=== PATIENT | female | born 1935 | race Caucasian/White ===

== ENCOUNTER → 2023-09-26 09:03 | Outpatient (REF) | payer OTHER, MEDICARE, SELFPAY ==
[2023-09-26 12:20] LABS: Urine Albumin Negative (Neg - Trace); Urine Bilirubin Negative (Negative); Urine Character Clear (Clear); Urine Color Yellow; Urine Glucose 3+ (Negative); Urine Ketone Negative (Negative); Urine Leukocyte Trace (Negative); Urine Nitrite Negative (Negative); Urine Occult Blood Negative (Negative); Urine Urobilinogen Negative (Neg - 1+)
[2023-09-26 12:22] LABS: % Basophils 0.7 % (0-2); % Eosinophils 2.2 % (0-6); % Immature Granulocytes 0.1 % (0-0.5); % Lymphocytes 20.2 % (20.5-51.1); % Monocytes 8.7 % (1.7-9.3); % Neutrophils 68.1 % (42.2-75.2); Absolute Basophils 0.1 10^3/uL (0-0.2); Absolute Eosinophils 0.2 10^3/uL (0-0.7); Absolute Lymphocytes 1.4 10^3/uL (1.2-3.4); Absolute Monocytes 0.6 10^3/uL (0.1-0.6); Absolute Neutrophils 4.6 10^3/uL (1.4-6.5); Hematocrit 45.1 % (37.0-47.0); Hemoglobin 14.8 g/dL (12.0-16.0); Mean Corp Hgb Conc. 32.8 g/dL (33.0-37.0); Mean Corpuscular Hgb 28.2 pg (27.0-31.0); Mean Corpuscular Volume 86.1 fL (81.0-99.0); Mean Platelet Volume 10.6 fL (7.4-10.4); Nucleated Red Blood Cells % 0 %; Platelet Count 256 10^3/uL (130-400); Red Blood Cell Count 5.24 10^6/uL (4.20-5.40); White Blood Cell Count 6.8 10^3/uL (4.8-10.8)
[2023-09-26 12:53] LABS: ALT (SGPT) 22 U/L (0-35); AST (SGOT) 22 U/L (14-36); Albumin 3.7 g/dl (3.5-5.0); Alkaline Phosphatase 68 U/L (38-126); Blood Urea Nitrogen 17 mg/dl (7-17); Calcium 9.1 mg/dl (8.4-10.2); Carbon Dioxide 31 mmol/L (22-30); Chloride 100 mmol/L (98-107); Glucose 135 mg/dl (70-99); Potassium 3.8 mmol/L (3.5-5.1); Total Bilirubin 1.7 mg/dl (0.2-1.3); Total Protein 6.6 g/dl (6.3-8.2); eGFR > 60.00
[2023-09-26 13:02] LABS: Sodium 138 mmol/L (135-145)
[2023-09-26 13:28] LABS: Urine Red Blood Cell 0-2 /HPF (0-2)
[2023-09-26 13:29] LABS: Urine Bacteria Few (Negative)
== END ==
LOC: HWLAB 09:03
PROVIDERS: ATTENDING PHYSICIAN Internal Medicine Rheumatology; FAMILY PHYSICIAN Family Medicine
DX: M35.00 Sjogren syndrome, unspecified (principal); E11.9 Type 2 diabetes mellitus without complications
CPT/HCPCS: 36415; 80053; 81003; 81015; 83036; 85025

== ENCOUNTER → 2024-01-09 07:00 | Outpatient (REF) | payer OTHER, SELFPAY ==
[2024-01-09 09:22] LABS: Glycohemoglobin (HgbA1c) 7.5 % (4.0-5.6)
[2024-01-09 09:23] LABS: ALT (SGPT) 19 U/L (0-35); AST (SGOT) 21 U/L (14-36); Albumin 4.1 g/dl (3.5-5.0); Alkaline Phosphatase 71 U/L (38-126); Blood Urea Nitrogen 18 mg/dl (7-17); Calcium 9.3 mg/dl (8.4-10.2); Carbon Dioxide 29 mmol/L (22-30); Chloride 105 mmol/L (98-107); Glucose 139 mg/dl (70-99); HDL Cholesterol 45 mg/dl; LDL Cholesterol, Calculated 61 mg/dl; Sodium 143 mmol/L (135-145); Total Bilirubin 1.4 mg/dl (0.2-1.3); Total Cholesterol 125 mg/dl (50-199); Triglyceride 97 mg/dl (10-149); Very Low Density Lipoprotein 19 mg/dl (0-30); eGFR > 60.00
== END ==
LOC: HWLAB 07:00
PROVIDERS: ATTENDING PHYSICIAN Family Medicine
DX: E11.9 Type 2 diabetes mellitus without complications (principal)
CPT/HCPCS: 36415; 80053; 80061; 83036

== ENCOUNTER 2024-02-13 13:32 | Inpatient (IN) | payer OTHER, SELFPAY ==
[2024-02-13] VITALS (12 sets, daily range): BP systolic 123–179; BP diastolic 57–95
--- NOTE | 2024-02-13 08:56 | ED.GENMED ---
History of Present Illness
General
Chief Complaint: Abdominal Symptoms
Source: patient, spouse and family
Exam Limitations: none
Time Seen by Provider: 02/13/24 08:13
Nursing documentation reviewed up to this point in time: agreed with
Travel History
Have you had any contact with someone who has COVID-19?: No
Do you have any symptoms of coronavirus? Fever > 100 degrees, chills, cough, shortness of breath, sore throat, loss of taste or smell, muscle aches, or headache?: No
History of Present Illness
History of Present Illness:
88-year-old female with past medical history of diabetes, hypertension presenting to the emergency department today after a fall last night where she got tripped up landed on her right hip. She had difficulty standing up and laid on the ground
throughout the night last night. Throughout the night she noticed some discomfort to her stomach had an episode of as well as loose movements multiple episodes. Denies any abdominal pain denies anybody around her that was sick. Claims to have
felt okay prior to the fall. Denies any lightheadedness chest pain shortness of breath. Denies any numbness weakness head strike or neck pain.
Past History
Past History
ED Past Medical History: HTN and NIDDM
ED Past Surgical History: Appendectomy, Cholecystectomy, Gynecological (tubal ligation) and Other (breast biopsies)
Social History
Tobacco: Non-smoker
Alcohol: None
Drug: None
Personal:
Living: with family
Employment: Retired
Family History
Family History: Other (reviewed and noncontributory)
Review of Systems
Review of Systems
Allergies reviewed?: Yes
All Other Systems: ROS reviewed and negative except as documented in HPI and ROS
Phy Exam
Physical Exam
Physical Exam:
GENERAL: Alert , in no apparent distress
EYE: pupils equal and reactive
NECK: Supple, no significant adenopathy.
ENT: o/p clr, mmm.
CARDIAC: Regular rate and rhythm .
LUNGS: Clear breath sounds bilaterally, no acute respiratory distress, no wheezes/rales/rhonchi
ABDOMEN: Soft, without focal tenderness, no r/g, no cvat
NEUROLOGICAL: Alert and oriented, no focal neuro deficits
SKIN: Warm and dry, skin intact.
MUSCULOSKELETAL: There is palpation to the proximal right femur and right hip increased with any movement of the right hip and rotation of the hip., well perfused.
PSYCH: Normal and appropriate interaction.
Course
Orders/Labs/Results
Orders:
Orders
02/13/24 08:49
CT Head W/o Iv Contrast Urgent
Comment:
Reason For Exam: fall unknonw head strike
Ondansetron Injectable [Zofran] 4 mg IV NOW STA
CR Chest Single View Urgent
Reason For Exam: sob
Hip, Right 2-3 Views [CR Hip - RT w/wo Pel 2-3 Vw*] Urgent
Comment:
Reason For Exam: right hip pain after fall
Include a pelvis x-ray?: Yes
02/13/24 09:08
Complete Blood Count/With Diff Urgent
Comprehensive Metabolic Panel Urgent
Creatine Phosphokinase Urgent
Lactic Acid Urgent
Lipase Urgent
Troponin I Urgent
02/13/24 10:09
Urinalysis Reflex To Culture Urgent
Date Specimen was Collected: 02/13/24
Time Specimen was Collected: 10:00
Urine Microscopic Reflex Cult Urgent
Urine Culture Urgent
MYCHAL Source: U
Specimen Description:
Date Specimen was Collected: 02/13/24
Time Specimen was Collected: 10:00
02/13/24 10:50
Azithromycin 500 mg/250 ml [Zithromax Infusion] 500 mg in 250 ml IV NOW
CefTRIAXone [Rocephin] 2,000 mg IV NOW STA
02/13/24 11:09
Sterile Water [Sterile Water For Injection] 20 ml .[address] .[facility]
02/13/24 11:14
Type+Screen Routine
02/14/24 Breakfast
NPO
Allow oral meds: Yes
Allow clear liquids: Sips of Clears
NPO for procedure after (time): after mn for OR 02/13
02/14/24 06:11
CeFAZolin 2 GRAM [Ancef] 2 grams in 10 ml IV PRE PROCEDURE
Povidone Iodine 10% Solution [Povidone Iodine 10%] 114 ml 0.9% Sod Chloride 3000 ml Irr [Nss Irrigation Bag] 3,000 ml IRRIG OR
Tranexamic Acid 3,000 mg 0.9% Sodium Chloride 250 ml [Nss] 250 ml IRRIG OR
Abnormal Lab Results
02/13/24 02/13/24
09:08 10:09
WBC 23.0 H 10^3/uL
(4.8-10.8)
RBC 5.83 H 10^6/uL
(4.20-5.40)
Hgb 16.3 H g/dL
(12.0-16.0)
Hct 49.3 H %
(37.0-47.0)
Abs Immat Gran (auto) 0.1 H 10^3/uL
(0-0.05)
Absolute Neuts (auto) 21.2 H 10^3/uL
(1.4-6.5)
Absolute Lymphs (auto) 0.4 L 10^3/uL
(1.2-3.4)
Absolute Monos (auto) 1.2 H 10^3/uL
(0.1-0.6)
Immature Gran % 0.6 H %
(0-0.5)
Neutrophils % 91.9 H %
(42.2-75.2)
Lymphocytes % 1.9 L %
(20.5-51.1)
Glucose 217 H mg/dl
(70-99)
Lactic Acid 3.3 H mmol/L
(0.7-2.0)
Total Bilirubin 3.2 H mg/dl
(0.2-1.3)
AST 37 H U/L
(14-36)
Creatine Kinase 258 H U/L
(30-135)
Urine Ketones 3+ A
(Negative)
Urine Nitrite (Reflex) Positive A
(Negative)
Urine Glucose 3+ A
(Negative)
02/13/24 09:08
02/13/24 09:08
Vital Signs
Initial and Last Documented VS:
Initial Vital Signs
Temp Pulse Resp BP Pulse Ox
99.0 F 90 20 163/95 94
02/13/24 08:04 02/13/24 08:04 02/13/24 08:04 02/13/24 08:04 02/13/24 08:04
Last Documented Vital Signs
Temp Pulse Resp BP Pulse Ox
99.0 F 90 27 169/67 95
02/13/24 08:04 02/13/24 11:30 02/13/24 11:34 02/13/24 11:29 02/13/24 11:34
MDM/Problems Addressed
MDM/Problems Addressed:
88-year-old female presenting to the emergency department today with concerns of right-sided hip discomfort after a mechanical fall that occurred last night she was unable to get off the ground roughly 10 hours last night as well. He was brought in
by ambulance. Here sided hip discomfort initially her pulse ox without oxygen in the high 80s. She denies using oxygen at baseline denies significant smoking history of COPD. She was placed on 2 L nasal cannula with improvement to the mid 90s.
X-ray showing fracture of the right hip. Additionally white count elevated to 23 lactic acid to 3.3 may be secondary to vomiting but additionally may have a pneumonia on the chest x-ray which could explain patient's hypoxemia patient was started on
antibiotics but otherwise will be admitted orthopedics was consulted about the case. stable throughout ER stay
*Critical Care Note
Total Time (30-74mins, 75-104mins- exclusive of procedures): Not Applicable
ED Attending Note
-
Portions of this chart may have been created with voice recognition software.� Occasional wrong word or��sound alike� substitutions may have occurred due to the inherent limitations of voice recognition software.
Discharge Plan
Departure
Patient Disposition: Admit
Date of Disposition: 02/13/24
Time of Disposition: 11:44
Admit to: Telemetry
Admit to doctor: Rodney
Presentation/result/management discussed w/ accepting MD/DO: Hospitalist
Patient with high blood pressure during this ER visit?: No
Condition: Good
Covid-19: Not Applicable
Discharge Problem:
Closed subcapital fracture of neck of right femur, Pneumonia, Leukocytosis, Hypoxemia
Prescriptions:
No Action
cevimeline [Evoxac] 30 MG capsule
30 mg PO BID
omeprazole 20 MG capsule,delayed release(DR/EC)
20 mg PO DAILYPRN PRN (Reason: acid reflux)
rosuvastatin 10 MG tablet
10 mg PO MOWEFR@1800
alprazolam 0.25 MG tablet
0.25 mg PO Q4HPRN PRN (Reason: anxiety)
losartan [Cozaar] 100 MG tablet
100 mg PO QPM
cholecalciferol (vitamin D3) 1,000 UNITS tablet
1,000 units PO DAILY
carvedilol 12.5 mg Tablet
12.5 mg PO BID
aspirin 81 mg Tablet,Delayed Release (Dr/Ec)
81 mg PO QPM
amlodipine 10 mg Tablet
5 mg PO BID
glimepiride 4 mg Tablet
4 mg PO DAILY
metformin 500 mg Tablet Extended Release 24 Hr
1,000 mg PO QPM
escitalopram oxalate 20 mg Tablet
20 mg PO DAILY
solifenacin 5 mg Tablet
5 mg PO DAILY
Jardiance 25 mg Tablet
25 mg PO DAILY
Centrum Chewables 8 mg-400 mcg- 10 mcg Tablet,Chewable
2 tab PO DAILY
Gemtesa 75 mg Tablet
75 mg PO DAILY
Referrals:
Christal Choi, [Family Provider] -
Interventions
Interventions:
*Risk Screen - Suicide Last Done: 02/13/24 08:04
*General Assessment Last Done: 02/13/24 08:04
*Neglect/Abuse Screening Last Done: 02/13/24 08:04
HL-Atpidu-Xosxeoewza Assessment Last Done: 02/13/24 09:05
ED-Musculoskeletal Assessment Last Done: 02/13/24 09:05
ED- Neurological Assessment Last Done: 02/13/24 09:05
ED-Skin Assessment Last Done: 02/13/24 09:05
Discharge Date and Time
Print Language: VIET[place]ESE
[2024-02-13 09:22] LABS: % Basophils 0.3 % (0-2); % Immature Granulocytes 0.6 % (0-0.5); % Lymphocytes 1.9 % (20.5-51.1); % Monocytes 5.3 % (1.7-9.3); % Neutrophils 91.9 % (42.2-75.2); Absolute Basophils 0.1 10^3/uL (0-0.2); Absolute Immature Granulocytes 0.1 10^3/uL (0-0.05); Absolute Lymphocytes 0.4 10^3/uL (1.2-3.4); Absolute Monocytes 1.2 10^3/uL (0.1-0.6); Absolute Neutrophils 21.2 10^3/uL (1.4-6.5); Hematocrit 49.3 % (37.0-47.0); Hemoglobin 16.3 g/dL (12.0-16.0); Mean Corp Hgb Conc. 33.1 g/dL (33.0-37.0); Mean Corpuscular Volume 84.6 fL (81.0-99.0); Mean Platelet Volume 9.7 fL (7.4-10.4); Nucleated Red Blood Cells % 0 %; Platelet Count 208 10^3/uL (130-400); Red Blood Cell Count 5.83 10^6/uL (4.20-5.40); Red Cell Dist. Width 13.2 % (11.5-14.5)
[2024-02-13 09:29] LABS: Lactic Acid 3.3 mmol/L (0.7-2.0)
[2024-02-13 09:39] LABS: ALT (SGPT) 28 U/L (0-35); AST (SGOT) 37 U/L (14-36); Albumin 4.6 g/dl (3.5-5.0); Alkaline Phosphatase 82 U/L (38-126); Blood Urea Nitrogen 16 mg/dl (7-17); Calcium 9.5 mg/dl (8.4-10.2); Carbon Dioxide 25 mmol/L (22-30); Chloride 105 mmol/L (98-107); Creatine Phosphokinase 258 U/L (30-135); Glucose 217 mg/dl (70-99); Lipase 37 U/L (23-300); Potassium 4.2 mmol/L (3.5-5.1); Sodium 142 mmol/L (135-145); Total Bilirubin 3.2 mg/dl (0.2-1.3); Total Protein 7.8 g/dl (6.3-8.2); eGFR > 60.00
[2024-02-13 09:42] LABS: Troponin I 0.014 ng/ml
[2024-02-13] MEDS: ZOFRAN 4 MG IV (09:45)
[2024-02-13 10:35] LABS: Urine Albumin Trace (Neg - Trace); Urine Bilirubin Negative (Negative); Urine Character Clear (Clear); Urine Color Yellow; Urine Glucose 3+ (Negative); Urine Ketone 3+ (Negative); Urine Leukocyte Negative (Negative); Urine Nitrite Positive (Negative); Urine Occult Blood Negative (Negative); Urine Specific Gravity 1.015 (<1.030); Urine Urobilinogen Negative (Neg - 1+)
--- NOTE | 2024-02-13 11:13 | W.PN.UPDATE ---
Update Note
Progress Note Update
Patient seen and evaluated in ED. Full consult note to follow.
Patient presents to ED with right femoral neck fracture. Plan for OR tomorrow under the direction of Dr. Raza for right hip hemiarthroplasty pending medical clearance.
--NPO after midnight for OR 02/13.
--NWB RLE until surgery.
--Pain control prn.
--T+S ordered.
[2024-02-13] MEDS: ROCEPHIN 2000 MG IV (11:22)
[2024-02-13] MEDS: ZITHROMAX INFUSION 250 IV (11:22)
--- NOTE | 2024-02-13 12:31 | HPS.HSE ---
Addendum entered and electronically signed by Nazario Whitlock MD 02/13/24 13:23:
EKG with normal sinus rhythm. Ventricular rate of 92. Mildly prolonged QTc of 499. Anterior lead changes noted compared to prior EKG. Prior EKG was back in 2008. Had nuclear stress 2018. Patient with risk factors of hypertension
hyperlipidemia and diabetes. Will order echo and ask cardiology for preop risk stratificaiton.
Original Note:
Family Physician
-
Family Physician: Christal Choi
Chief Complaint
-
I fell
History of Present Illness
88-year female significant past medical history who is presenting from home after a fall last night. Patient stated she got up and tripped and subsequently leading to fall and landing on the right hip. States she was in significant amount of pain
and laid on the floor overnight. Spouse was sleeping upstairs however was unable to hear patient. Also stating of some loose stool that started yesterday. Denies any nausea or vomiting. Denies any abdominal pain no sick contact. Denies any
chest pain shortness of breath. Denies any headache. Denies any neck pain. Denies any urinary urgency or frequency. Currently only stating of mild right hip pain. In the ER patient was found to have severe leukocytosis with concern for
pneumonia and right hip fracture. Patient was eval by orthopedic with plan for the OR in the morning.
Medical History
Past Medical History
Past Medical History: Reports Other
Additional Past Medical History:
Primary hypertension
Urinary stress incontinence
Diabetes mellitus type 2
Osteoarthritis
Macular degeneration
Sjogren's syndrome
GERD
Hyperlipidemia
Past Surgical History: Reports Appendectomy, Cholecystectomy and Gynocological (Tubal ligation)
Social History
Tobacco: Non-smoker
Alcohol: None
Drug: None
Personal:
Living: With Family
Family History
Family History: Not pertinent
Allergies / Home Medications
Allergies reflects when Allergies were last updated in [employer].
Home Medications with original date entered in [employer]
Allergy/Medication List:
Allergies
Allergy/AdvReac Type Severity Reaction Status Date / Time
No Known Allergies Allergy Verified 02/13/24 08:07
Home Medications
alprazolam 0.25 mg tablet 0.25 mg PO Q4HPRN PRN anxiety 07/02/19
cevimeline 30 mg capsule (Evoxac) 30 mg PO BID 07/02/19
cholecalciferol (vitamin D3) 25 mcg (1,000 unit) tablet 1,000 units PO DAILY 07/02/19
losartan 100 mg tablet (Cozaar) 100 mg PO QPM 07/02/19
omeprazole 20 mg capsule,delayed release 20 mg PO DAILYPRN PRN acid reflux 07/02/19
rosuvastatin 10 mg tablet 10 mg PO MOWEFR@1800 07/02/19
amlodipine 10 mg tablet 5 mg PO BID 02/13/24
aspirin 81 mg tablet,delayed release 81 mg PO QPM 02/13/24
carvedilol 12.5 mg tablet 12.5 mg PO BID 02/13/24
empagliflozin 25 mg tablet (Jardiance) 25 mg PO DAILY 02/13/24
escitalopram oxalate 20 mg tablet 20 mg PO DAILY 02/13/24
glimepiride 4 mg tablet 4 mg PO DAILY 02/13/24
metformin 500 mg tablet,extended release 24 hr 1,000 mg PO QPM 02/13/24
rfxgaukf-uhxhinrm-hdnq 8 mg-folic ac 400 mcg-vit K 10 mcg chew tablet (Centrum Chewables) 2 tab PO DAILY 02/13/24
solifenacin 5 mg tablet 5 mg PO DAILY 02/13/24
vibegron 75 mg tablet (Gemtesa) 75 mg PO DAILY 02/13/24
Review of Systems
-
History Source: Patient
A 12 point ROS was completed and negative except as noted: Yes
Physical Exam
Vital Signs
Vital Signs
Temp Pulse Resp BP Pulse Ox
99.0 F 91 34 169/67 96
02/13/24 08:04 02/13/24 11:45 02/13/24 11:45 02/13/24 11:29 02/13/24 11:45
Physical Exam
General: Well Developed, Well Nourished and No Apparent Distress
HEENT: NormoCephalic, Moist mucous membranes, Atraumatic and Oxygen
Respiratory: Clear
Cardiac: S1/S2 and Regular Rhythm; No Murmur or Rub
GI: Soft, Non Tender, Non Distended and Normal Bowel Sounds; No Organomegaly
Rectal: Deferred by Provider
Musculoskeletal: No Clubbing, No Cyanosis and No Edema
Skin: No Rash
Neuro: Awake, No Motor Deficits and Nonfocal/grossly intact
Psych: Calm
Laboratory Results
-
02/13/24 09:08
02/13/24 09:08
Laboratory Results
Lactic Acid 3.3 mmol/L (0.7-2.0) H 02/13/24 09:08
Total Bilirubin 3.2 mg/dl (0.2-1.3) H 02/13/24 09:08
AST 37 U/L (14-36) H 02/13/24 09:08
ALT 28 U/L (0-35) 02/13/24 09:08
Alkaline Phosphatase 82 U/L (38-126) 02/13/24 09:08
Troponin I 0.014 ng/ml 02/13/24 09:08
Lipase 37 U/L (23-300) 02/13/24 09:08
Impression/Plan
-
#Mechanical fall
#Right femoral neck fracture.
Bedrest till surgery
Pain control
Antinausea meds
Type and screen
N.p.o. past midnight OR tomorrow
Pt denies chest pain at rest or exertion or sob or pnd or orthopnea. States at home she is able to ambulate with a walker without any chest pain or shortness of breath..Denies prior history of HF, Renal problems or prior history of any CV events.
Electrocardiogram pending.
# Sepsis likely secondary community-acquired pneumonia and viral gastroenteritis
Lactic acidosis
Severe leukocytosis
Start patient IV fluid maintenance
Bolus IVF NS x 1 liter. Pt severely dehydrated.
Repeat lactic acid
Start patient on ceftriaxone and doxycycline
Trend WBC
If with cough and check sputum sample
#Acute hypoxic respiratory insufficiency
Plan as above
Wean oxygen as tolerated
# Diabetes mellitus type 2
Hold p.o. meds
A1C of 7.5 on 01/18
Insulin sliding scale and Accu-Cheks
#Hyperlipidemia
Continue statin
#Primary hypertension
Continue Norvasc and Cozaar
#Chronically elevated Bilirubin
Check Direct bili
Mood disorder
Continue SSRIs. Hold Xanax.
DVT prophylaxis SCDs preop and postop per orthopedic
Full code
I spent a total of 82 minutes with the patient or on the floor. More than 50% of this time involved counseling and coordination of care.
[2024-02-13 13:54] LABS: Urine Bacteria Many (Negative); Urine Red Blood Cell 0-2 /HPF (0-2); Urine White Cell 26-30 /HPF (0-5)
--- NOTE | 2024-02-13 14:18 | CON.CAR ---
Addendum entered and electronically signed by Mireille Jiménez MD 02/13/24 17:06:
I saw and examined the patient.
The CAN CUTTER's note was reviewed and I agree with the note.
Comment: She is an 88-year-old female (last seen in the office by Dr. Arora in 2018), with hypertension, dyslipidemia, type 2 diabetes mellitus, Sjogren's disease, OLGA, and anxiety who we are asked to preop prior to hip arthroplasty 09/29 to fall.
She reports she was on the ground all night. Now, she has has a cough but denies sob. On exam she is rrr, no m/r/g. Lungs are CTA. She has an abnormal ecg with sinus rhythm poor rwave progression and IVCD. CXR with FRANKIE PNA. She had an echo with
normal LVEF. She has an elevated risk as below for procedure. But no active cp. No CHF. PNA is being treated. Can proceed if Ortho ok with pna, but she is not bronchospastic or hypoxic.
SHe appears dry on labs and exam, consider volume resuscitation.
Will follow.
Original Note:
Consultation
Consultation Request
Date/Time Consultation Requested: 02/13/2024 13:15
Date/Time Consultation Performed: 02/13/2024 14:00
Requesting Provider: Dr. Whitlock
Performing Provider: BREEZY Millan for Dr. Jiménez
Reason for Consultation: Cardiac risk assessment
Medical History
-
Chief Complaint: Abdominal pain
History of Present Illness:
The patient is an 88-year-old female (last seen in the office by Dr. Arora in 2019), with hypertension, dyslipidemia, type 2 diabetes mellitus, Sjogren's disease, OLGA, and anxiety presented to the emergency department the chief complaint of
abdominal pain. Last evening she lost her balance and fell on her hip. She believes she was only on the floor for two hours but family and notes reflect otherwise. She has been experiencing loose stool and abdominal pain. She was very surprised
when she was found to have a femoral neck fracture. She has leukocytosis, lactic acidosis, an elevated CK and hyperglycemia. Her EKG is abnormal. Cardiology was consulted for risk assessment. She is not very active but reports no chest pain or
shortness of breath with household activities.
Past Medical History
Past Medical History: HTN, Hypercholesterolemia, NIDDM, Psychiatric (Anxiety) and Other (Sjogren's disease, OLGA)
Past Surgical History: Appendectomy, Cholecystectomy and Gynecological
Social History
Tobacco: Non-Smoker
Alcohol: None
Drug: None
Personal:
Living: With Family
Employment: Retired
Family History
Family History: Reviewed & Not Pertinent
Allergies / Home Medications
Allergy/AdvReac Type Severity Reaction Status Date / Time
No Known Allergies Allergy Verified 02/13/24 08:07
�Medication �Instructions �Recorded �Confirmed �Type
alprazolam 0.25 mg tablet 0.25 mg PO Q4HPRN PRN anxiety 07/02/19 02/13/24 History
cevimeline 30 mg capsule (Evoxac) 30 mg PO BID 07/02/19 02/13/24 History
cholecalciferol (vitamin D3) 25 1,000 units PO DAILY 07/02/19 02/13/24 History
mcg (1,000 unit) tablet
losartan 100 mg tablet (Cozaar) 100 mg PO QPM 07/02/19 02/13/24 History
omeprazole 20 mg capsule,delayed 20 mg PO DAILYPRN PRN acid reflux 07/02/19 02/13/24 History
release
rosuvastatin 10 mg tablet 10 mg PO MOWEFR@1800 07/02/19 02/13/24 History
amlodipine 10 mg tablet 5 mg PO BID 02/13/24 02/13/24 History
aspirin 81 mg tablet,delayed 81 mg PO QPM 02/13/24 02/13/24 History
release
carvedilol 12.5 mg tablet 12.5 mg PO BID 02/13/24 02/13/24 History
empagliflozin 25 mg tablet 25 mg PO DAILY 02/13/24 02/13/24 History
(Jardiance)
escitalopram oxalate 20 mg tablet 20 mg PO DAILY 02/13/24 02/13/24 History
glimepiride 4 mg tablet 4 mg PO DAILY 02/13/24 02/13/24 History
metformin 500 mg tablet,extended 1,000 mg PO QPM 02/13/24 02/13/24 History
release 24 hr
qfdiqumn-dmnepejv-lqkd 8 mg-folic 2 tab PO DAILY 02/13/24 02/13/24 History
ac 400 mcg-vit K 10 mcg chew
tablet (Centrum Chewables)
solifenacin 5 mg tablet 5 mg PO DAILY 02/13/24 02/13/24 History
vibegron 75 mg tablet (Gemtesa) 75 mg PO DAILY 02/13/24 02/13/24 History
Review of Systems
-
History Source: Patient
All other systems: Negative unless noted
Respiratory: No Symptoms
Cardiac: No Symptoms
Abdomen/GI: No Symptoms
: Incontinence
Musculoskeletal: Joint Pain
Physical Exam
Vital Signs
Temp Pulse Resp BP Pulse Ox
99.0 F 93 15 167/76 96
02/13/24 08:04 02/13/24 13:30 02/13/24 13:30 02/13/24 13:00 02/13/24 13:30
Lab Results
02/13/24 09:08
02/13/24 09:08
Troponin I 0.014 ng/ml 02/13/24 09:08
Physical Exam
General: Well Developed, Well Nourished, No Apparent Distress and Comfortable
HEENT: Normocephalic, Anicteric and Moist Mucous Membranes
Respiratory: Non Labored Respirations
Cardiac: S1/S2 and Regular Rhythm; Negative Peripheral Edema
Breast: Deferred by me
GI: Soft, Non Tender, Non Distended and Normal Bowel Sounds
Genito-urinary: No Costovertebral Tender
Musculoskeletal: No Clubbing, No Cyanosis and No Edema
Skin: Warm and Dry
Neuro: AO x 3
Hematologic/Lymphatic: No Lymphadenopathy
Psych: Calm
Impression / Plan
-
Cardiac risk assessment - Right hip hemiarthroplasty
-Denies chest pain and shortness of breath
-Admitted with sepsis
-Echocardiogram
Sepsis, believed to be CAP versus viral gastroenteritis
-Lactic acidosis with leukocytosis
-Antibiotics per primary service
Mechanical fall, with right femoral neck fracture, denies LOC
Hypertension, chronic, stable
LBBB, seen during 2019 nuclear stress test, believed to be rate related
Type 2 diabetes mellitus, on oral agents, HgbA1c 7.5% last month
Dyslipidemia, LDL 61 on rosuvastatin 10
Sjogren's
Data Reviewed
-
EKG: Report Reviewed by me (Sinus rhythm, first-degree AV block, anterior ST changes, rate 92)
Radiology: Report Reviewed by me (Hip x-ray: Osteopenia with an acute nondisplaced subcapital fracture of the right femur; CXR: Hazy confluent parenchymal airspace disease in the left upper lobe suggesting pneumonia)
CT Scan: Report Reviewed by me (Head: No acute intracranial abnormalities)
Medical Tests (Nuc Med, Echo etc): Report Reviewed by me (Prior Lexiscan nuclear stress test)
Labs: Labs Reviewed by me
Old Records: Reviewed
[2024-02-13] MEDS: NSS 500 IV (15:15)
[2024-02-13 15:27] LABS: Lactic Acid 2.3 mmol/L (0.7-2.0)
--- NOTE | 2024-02-13 15:27 | PTCARENOTE ---
Pt arrived to 2S on stretcher, slid to bed via NSG staff. IV bolus initiated. Nasal cannula maintained. Pt found to be saturated in urine, perineal care provided and new purewick applied. SCDs applied. Telemetry applied. Bed locked and in the lowest
position, safety maintained. Son and spouse at bedside.
[2024-02-13 16:30] LABS: Glucose - Point of Care 167 mg/dl (70-99)
[2024-02-13] MEDS: NSS 1000 IV (16:59)
[2024-02-13] MEDS: NOVOLOG FLEXPEN-LOW RESISTANCE 1 UNITS SC (17:00)
[2024-02-13] MEDS: COZAAR 100 MG PO (17:00)
[2024-02-13] MEDS: TYLENOL 650 MG PO ×2 (17:00→19:40)
--- NOTE | 2024-02-13 17:00 | CON.ORTHO ---
Consultation
-
Date/Time Consultation Requested: 02/13/2024; time unknown
Date/Time Consultation Performed: 02/13/2024; 1200
Requesting Provider: unknown
Performing Provider: Patience Reynolds PA-C for Dr. Bib Raza
Reason for Consultation: Right hip fracture
Consultation - Orthopedics
History
Dayami is an 88 year old female with PMH of DMII and HTN seen today for her right hip. She reports she lost her balance and fell in her kitchen last night. She experienced immediate onset of pain in her right hip, and was unable to get up off the
ground. She reports she was on the ground for about 10 hours. She was brought to ED via EMS where x-rays revealed a femoral neck fracture. She denies any pain at rest, but does report pain with any movement of the hip.
She lives at home with her . She reports she ambulates without assistance at baseline. She denies PMH of DVT, CVA or NV. She does not take any daily blood thinners. She denies known history of difficulty with anesthesia.
Allergies / Home Medications
Allergy/AdvReac Type Severity Reaction Status Date / Time
No Known Allergies Allergy Verified 02/13/24 08:07
�Medication �Instructions �Recorded
alprazolam 0.25 mg tablet 0.25 mg PO Q4HPRN PRN anxiety 07/02/19
cevimeline 30 mg capsule (Evoxac) 30 mg PO BID 07/02/19
cholecalciferol (vitamin D3) 25 1,000 units PO DAILY 07/02/19
mcg (1,000 unit) tablet
losartan 100 mg tablet (Cozaar) 100 mg PO QPM 07/02/19
omeprazole 20 mg capsule,delayed 20 mg PO DAILYPRN PRN acid reflux 07/02/19
release
rosuvastatin 10 mg tablet 10 mg PO MOWEFR@1800 07/02/19
amlodipine 10 mg tablet 5 mg PO BID 02/13/24
aspirin 81 mg tablet,delayed 81 mg PO QPM 02/13/24
release
carvedilol 12.5 mg tablet 12.5 mg PO BID 02/13/24
empagliflozin 25 mg tablet 25 mg PO DAILY 02/13/24
(Jardiance)
escitalopram oxalate 20 mg tablet 20 mg PO DAILY 02/13/24
glimepiride 4 mg tablet 4 mg PO DAILY 02/13/24
metformin 500 mg tablet,extended 1,000 mg PO QPM 02/13/24
release 24 hr
wodahszg-pbvasujr-flxj 8 mg-folic 2 tab PO DAILY 02/13/24
ac 400 mcg-vit K 10 mcg chew
tablet (Centrum Chewables)
solifenacin 5 mg tablet 5 mg PO DAILY 02/13/24
vibegron 75 mg tablet (Gemtesa) 75 mg PO DAILY 02/13/24
Vital Signs / Lab Results
Temp Pulse Resp BP Pulse Ox
99.0 F 92 18 156/75 91
02/13/24 15:20 02/13/24 15:20 02/13/24 15:20 02/13/24 15:20 02/13/24 15:20
02/13/24 09:08
02/13/24 09:08
XR Right Hip 02/13/2024 IMPRESSION:
Osteopenia with an acute nondisplaced subcapital fracture of the right femur.
Directed exam of the right lower extremity reveals no obvious erythema, ecchymosis or lesions about the right hip. Mild tenderness to palpation about the anterior hip. Thigh soft and compressible. ROM deferred secondary to known fracture. Positive
log roll. Calf soft and nontender. Neurovascularly intact distally.
Assessment / Plan
Right femoral neck fracture
--Unfortunately, Dayami sustained a femoral neck fracture in her fall. I recommend proceeding with a right hip hemiarthroplasty. The risks, benefits, alternatives, recovery process and potential complications were discussed in detail. All patient
questions were answered. She would like to proceed with surgical intervention of her fracture. We will tentatively plan for OR tomorrow under the direction of Dr. Raza. We appreciate input from medicine in regards to OR clearance. Surgical and
blood consent signed and scanned into patient chart. Paper copy placed at OR desk.
--NPO after midnight for OR 02/13.
--NWB to RLE until surgery.
--Pain control per primary. Ice prn for pain and edema control.
--T+S ordered.
--Irrigation and abx ordered to OR.
--Please reach out with any additional orthopedic questions or concerns.
[2024-02-13] MEDS: COLACE 100 MG PO (19:40)
[2024-02-13] MEDS: SENOKOT 17.1999999999999993 MG PO (19:40)
[2024-02-13] MEDS: NORVASC 5 MG PO (19:44)
[2024-02-13] MEDS: COREG 12.5 MG PO (19:45)
[2024-02-13] MEDS: ROXICODONE 5 MG PO (20:02)
[2024-02-13 21:29] LABS: Glucose - Point of Care 168 mg/dl (70-99)
[2024-02-13 21:49] LABS: Lactic Acid 1.2 mmol/L (0.7-2.0)
[2024-02-14] VITALS (12 sets, daily range): BP systolic 105–145; BP diastolic 49–93; PULSE 69; O2SAT 90–91
[2024-02-14] MEDS: TYLENOL PO (00:34)
--- NOTE | 2024-02-14 04:19 | DOWNTIME ---
There was a [employer] Client [employer] Consultant Downtime on 02/14/2024 from 0100 to 02/14/2024 at 0337. Downtime documentation of patient's care, including medication administrations, has been reconciled in the electronic record per guidelines. Refer to the
patient's paper chart under the miscellaneous tab to see printed paper medication records and downtime forms.
[2024-02-14] MEDS: MORPHINE SULFATE 1 MG IV (04:38)
[2024-02-14] MEDS: TYLENOL 650 MG PO ×5 (04:38→20:26)
[2024-02-14] MEDS: NSS 1000 IV (05:33)
[2024-02-14 07:24] LABS: Glucose - Point of Care 115 mg/dl (70-99)
[2024-02-14] MEDS: NOVOLOG FLEXPEN-LOW RESISTANCE SC ×3 (07:28→17:36)
[2024-02-14] MEDS: VESICARE 5 MG PO (08:07)
[2024-02-14] MEDS: SENOKOT 17.1999999999999993 MG PO ×2 (08:08→20:26)
[2024-02-14] MEDS: LEXAPRO 20 MG PO (08:08)
[2024-02-14] MEDS: COREG 12.5 MG PO ×2 (08:08→20:31)
[2024-02-14] MEDS: COLACE 100 MG PO ×2 (08:09→20:25)
[2024-02-14] MEDS: VITAMIN D3 (cholecalciferol) 25 MCG PO (08:09)
[2024-02-14] MEDS: JARDIANCE 25 MG PO (08:09)
[2024-02-14] MEDS: THERAGRAN 1 TABLET PO (08:11)
[2024-02-14] MEDS: NORVASC 5 MG PO ×2 (08:11→20:26)
[2024-02-14 08:49] LABS: % Basophils 0.4 % (0-2); % Immature Granulocytes 0.4 % (0-0.5); % Lymphocytes 5.6 % (20.5-51.1); % Monocytes 6.6 % (1.7-9.3); Absolute Basophils 0.1 10^3/uL (0-0.2); Absolute Eosinophils 0.3 10^3/uL (0-0.7); Absolute Immature Granulocytes 0.1 10^3/uL (0-0.05); Absolute Lymphocytes 0.9 10^3/uL (1.2-3.4); Absolute Monocytes 1.1 10^3/uL (0.1-0.6); Absolute Neutrophils 13.8 10^3/uL (1.4-6.5); Hematocrit 40.8 % (37.0-47.0); Hemoglobin 13.5 g/dL (12.0-16.0); Mean Corp Hgb Conc. 33.1 g/dL (33.0-37.0); Mean Corpuscular Hgb 27.6 pg (27.0-31.0); Mean Corpuscular Volume 83.4 fL (81.0-99.0); Nucleated Red Blood Cells % 0 %; Platelet Count 184 10^3/uL (130-400); Red Blood Cell Count 4.89 10^6/uL (4.20-5.40); Red Cell Dist. Width 13.6 % (11.5-14.5); White Blood Cell Count 16.3 10^3/uL (4.8-10.8)
[2024-02-14] MEDS: VIBRAMYCIN 260 MG IV ×2 (09:13→20:48)
[2024-02-14 09:31] LABS: Blood Urea Nitrogen 22 mg/dl (7-17); Carbon Dioxide 25 mmol/L (22-30); Chloride 108 mmol/L (98-107); Glucose 107 mg/dl (70-99); Potassium 4.5 mmol/L (3.5-5.1); Sodium 141 mmol/L (135-145); eGFR > 60.00
--- NOTE | 2024-02-14 10:01 | W.PN.CD ---
Addendum entered and electronically signed by Pablito Arora MD 02/14/24 13:25:
The SENIOR JAVA PROGRAMMER's note was reviewed and I agree with the note.
Patint not available. Patient off floor to OR. Lorenaneal mckeon her who was in the rom
Original Note:
Today's Communication / Plan
-
Plan is for surgery today
Monitor tele and BP's post-op
Denies any CP or SOB
Impression / Plan
-
88-year-old female (last seen in the office by Dr. Arora in 2019), with hypertension, dyslipidemia, type 2 diabetes mellitus, Sjogren's disease, OLGA, and anxiety who we were asked to see for pre-op risk assessment prior to hip arthroplasty
secondary to fall.
Mechanical fall, with right femoral neck fracture, denies LOC:
-plan is for surgery today with right hip hemiarthroplasty. She denies any CP or SOB. She has an abnormal ecg with sinus rhythm poor rwave progression and IVCD. Tele is stable in SR. CXR with FRANKIE PNA. Lungs clear to auscultation. On 2L NC. She had
an echo with normal LVEF (02/13/24: Normal biventricular size and systolic function. No significant valvular disease. No significant valvular disease. Mild pulmonary hypertension). She is at elevated risk for proposed procedure (details with graph on
note 02/13/24). However, no active CP, no CHF. PNA is being treated. Can proceed if Ortho okay with PNA.
Sepsis, believed to be CAP versus viral gastroenteritis
-Antibiotics per primary service
Hypertension, chronic, stable ;
-continue medical therapy
LBBB, seen during 2019 nuclear stress test, believed to be rate related
Type 2 diabetes mellitus, on oral agents, HgbA1c 7.5% last month
Dyslipidemia, LDL 61 on rosuvastatin 10
Sjogren's
Physical Exam
Vital Signs/Labs
Vital Signs
Temp Pulse Resp BP Pulse Ox
98.5 F 73 16 145/71 94
02/14/24 07:35 02/14/24 07:35 02/14/24 07:35 02/14/24 07:35 02/14/24 07:35
02/13/24 02/14/24 02/15/24
06:59 06:59 06:59
Actual Weight 73.4 kg
02/14/24 08:20
02/14/24 08:20
LAB Results
02/13/24
09:08
Troponin I 0.014
Physical Exam
Constitutional: No acute distress
EENT: Anicteric
Cardiovascular: Rhythm & rate is regular
Respiratory: Respiratory effort normal, Lungs clear to auscul. and Other (on O2 by LA)
Neuro/Psych: AO x 3
Data Reviewed
-
Date of Service: February 14, 2024
EKG: Other (tele SR)
Labs: Labs Reviewed by me
--- NOTE | 2024-02-14 10:15 | W.PN.UPDATE ---
Update Note
Progress Note Update
Patient NPO. Plan for OR today via [facility] for right hip Shane. Afeb. Hgb 13.5. Surgical and blood consents on chart.
--- NOTE | 2024-02-14 11:38 | W.PN.HOSP.TC ---
Today's Communication/Plan
-
IV abx
OR today
wean o2 post op
trend cbc
Assessment / Plan
Assessment / Plan
#Mechanical fall
#Right femoral neck fracture.
Bedrest till surgery
Pain control
Antinausea meds
Type and screen
N.p.o. past midnight OR today
Echo with EF normal. No significant valvular disease. Mild pulmonary hypertension. Normal biventricular size and systolic function.
Appreciate cards for pre-op risk stratification-High risk for intermediate surgery. Monitor BP/tele post op.
# Severe Sepsis likely secondary community-acquired pneumonia and viral gastroenteritis-poa
Lactic acidosis resolved with IVF
Severe leukocytosis-improving
Cont patient IV fluid maintenance
s/p bolus.
Repeat lactic acid-downtrended.
Start patient on ceftriaxone and doxycycline
Trend WBC
If with cough and check sputum sample
#Acute hypoxic respiratory insufficiency
Plan as above
Wean oxygen as tolerated
# Diabetes mellitus type 2
Hold p.o. meds
A1C of 7.5 on 01/18
Insulin sliding scale and Accu-Cheks
#Hyperlipidemia
Continue statin
#Primary hypertension
Continue Norvasc and Cozaar
#Chronically elevated Bilirubin
Check Direct bili
Mood disorder
Continue SSRIs. Hold Xanax.
DVT prophylaxis SCDs preop and postop per orthopedic
Full code
Anticipated Discharge: > 48 hours
Subjective/Interval History
-
Date of Service: February 14, 2024
states of R hip soreness
on 2L oxygen
dry cough
denies cp or sob
Objective Data
-
Labs:
Laboratory Results
02/14/24
08:20
WBC 16.3 H
Hgb 13.5
Hct 40.8
Plt Count 184
Sodium 141
Potassium 4.5
Chloride 108 H
Carbon Dioxide 25
BUN 22 H
Creatinine 0.8
Glucose 107 H
Calcium 9.0
Vital Signs:
Vital Signs
Temp Pulse Resp BP Pulse Ox
98.5 F 73 16 145/71 94
02/14/24 07:35 02/14/24 07:35 02/14/24 07:35 02/14/24 07:35 02/14/24 07:35
I&O
02/13/24 02/14/24 02/15/24
06:59 06:59 06:59
Intake Total 2830 / 2830
Output Total 500 / 500
Balance 2330 / 2330
Physical Exam
-
General: Well Developed and No Apparent Distress
HEENT: Normocephalic, Atraumatic, Moist Mucous Membranes and Oxygen (2L)
Respiratory: Crackles
Cardiac: Regular Rhythm and S1/S2; Negative Murmur, Rub or Gallop
GI: Soft, Nontender, Nondistended and Normal Bowel Sounds; Negative Organomegaly
Rectal: Deferred by Provider
Musculoskeletal: No Clubbing, No Cyanosis and No Edema
Skin: Negative Rash
Neuro: Awake and Nonfocal/Grossly Intact
Psych: Calm
Data Reviewed
-
Total Time Spent with Patient (in minutes): 55
[2024-02-14 12:10] LABS: Glucose - Point of Care 93 mg/dl (70-99)
--- NOTE | 2024-02-14 12:37 | W.PN.UPDATE ---
Update Note
Progress Note Update
Pt seen and examined preoperatively, right hip fx reivwed w. patient including xrays. I rec'd surgery and specifically hemiarthroplasty. The nature of the surgery, recovery, risks and benefits reviewed and pt in agreement to proceed. She verbally
and in written form authorized consent.
Surgery completed w. no complications. Pt seen in pacu, doing well.
--- NOTE | 2024-02-14 13:23 | PTCARENOTE ---
Pt returned to 2S in bed. R hip aquacel C/D/I. RLE with decreased movement, neurovascular assessment otherwise intact. Nasal cannula weaned to 2L. Bed locked and in the lowest position, safety maintained. Oriented to room and call christi family at
bedside.
[2024-02-14] MEDS: STERILE WATER FOR INJECTION 10 ML IV (13:34)
[2024-02-14] MEDS: ROCEPHIN 1000 MG IV (13:34)
--- NOTE | 2024-02-14 15:44 | CM ---
Reviewed the chart notes and spoke with the patient, spouse and children at the bedside. The patient resides with her spouse in a one story home in a [place] community. There are a total to three steps to enter (two on sidewalk leading to home and one
to enter). The patient has in the home if needed a rolling walker, a cane, a shower chair, and a shower grab bar. The patient reports no VN or SNF in the past. The patient confirmed her pharmacy of choice is the [facility].
PT/OT recommends SNF. Reviewed facilities in admission packet. Family will review and leave names of facilities for CM. CM continues to be available to patient/family and is monitoring medical plan for needs at discharge.
Plan: Discharge to SNF/rehab once bed found and precert obtained.
[2024-02-14 16:31] LABS: Glucose - Point of Care 139 mg/dl (70-99)
[2024-02-14] MEDS: COZAAR 100 MG PO (17:35)
[2024-02-14] MEDS: CRESTOR 10 MG PO (17:35)
[2024-02-14] MEDS: ASPIRIN 325 MG PO (17:36)
[2024-02-14] MEDS: BACTROBAN 2% OINTMENT 1 APPLIC NASAL (20:25)
[2024-02-14] MEDS: ANCEF 5 IV (20:25)
[2024-02-14 21:49] LABS: Glucose - Point of Care 217 mg/dl (70-99)
[2024-02-15] VITALS (8 sets, daily range): BP systolic 117–153; BP diastolic 58–86; PULSE 76; O2SAT 96
[2024-02-15] MEDS: TYLENOL PO ×4 (01:00→23:02)
[2024-02-15] MEDS: ANCEF 5 IV (02:27)
[2024-02-15 06:27] LABS: % Basophils 0.2 % (0-2); % Immature Granulocytes 0.5 % (0-0.5); % Lymphocytes 4.5 % (20.5-51.1); % Monocytes 5.6 % (1.7-9.3); % Neutrophils 89.2 % (42.2-75.2); Absolute Immature Granulocytes 0.1 10^3/uL (0-0.05); Absolute Lymphocytes 0.6 10^3/uL (1.2-3.4); Absolute Monocytes 0.7 10^3/uL (0.1-0.6); Absolute Neutrophils 11.8 10^3/uL (1.4-6.5); Hematocrit 41.3 % (37.0-47.0); Mean Corp Hgb Conc. 31.5 g/dL (33.0-37.0); Mean Corpuscular Hgb 27.1 pg (27.0-31.0); Mean Platelet Volume 10.4 fL (7.4-10.4); Nucleated Red Blood Cells % 0 %; Platelet Count 166 10^3/uL (130-400); Red Cell Dist. Width 13.2 % (11.5-14.5); White Blood Cell Count 13.2 10^3/uL (4.8-10.8)
[2024-02-15 06:59] LABS: Blood Urea Nitrogen 31 mg/dl (7-17); Calcium 8.9 mg/dl (8.4-10.2); Carbon Dioxide 16 mmol/L (22-30); Chloride 110 mmol/L (98-107); Glucose 125 mg/dl (70-99); Potassium 4.1 mmol/L (3.5-5.1); Sodium 142 mmol/L (135-145); eGFR > 60.00
--- NOTE | 2024-02-15 07:51 | W.PN.ORTHO ---
Today's Communication / Plan
-
PT/OT
Aspirin DVT prophylaxis
Weightbearing as tolerated
Hip precautions
long-term facility once medically stable
Assessment
.
Distal Motor Intact: Yes
Dressing:
Clean, dry and intact.
Plan
.
Surgery / Date: R hip hemiarthroplasty 02/13 Ry
DVT Prophylaxis: Aspirin
Activity:
Out of bed.
PT/OT
Discharge Plan: SNF
Subjective
.
.:
Patient resting comfortably.
Vital Signs and Labs
.
Vital Signs and Labs:
Lab Results
02/15/24 05:32
02/15/24 05:32
Temp Pulse Resp BP Pulse Ox
98.1 F 73 19 141/68 96
02/15/24 04:12 02/15/24 04:12 02/15/24 04:12 02/15/24 04:12 02/15/24 04:12
--- NOTE | 2024-02-15 07:59 | PN.CDI ---
CDI
- -
CDI:
Physician Documentation Request
Admit Date: 02/13/24 13:32
Dear Doctor Chinyere,
Please review the following and provide your response in the progress notes.
Clinical Indicators:
08/14/14, Dexa Scan
#10-year fracture risk:
#...Major Osteoporotic Fracture
#...15%
#Hip Fracture
#...4.0%
#IMPRESSION: Osteopenia.
#...There has been a statistically significant decrease in bone mineral density
#...in the proximal femur since the prior examination.
02/13/2024, Ortho consult, 02/13 2024
#XR Right Hip 02/13/2024 IMPRESSION:
#...Osteopenia with an acute nondisplaced subcapital fracture of the right femur.
02/12, H+P
#...presenting from home after a fall last night.
#...Patient stated she got up and tripped and subsequently leading to fall
#...and landing on the right hip.
#...States she was in significant amount of pain and laid on the floor overnight.
#Mechanical fall
#Right femoral neck fracture.
Please clarify the following regarding the etiology of the right hip/femur fracture:
Multifactorial due to trauma and age related osteoporosis
Traumatic fracture only
Other(please specify)
Type Fracture
Age-related With current pathological fx
without current pathological fx
Idiopathic
Osteoporosis of disuse
Due to post surgical malabsorption
Post traumatic
Use of terms such as suspected, likely, concern for, or probable (associated with a specific diagnosis that is being evaluated, monitored, or treated as if it exists) are acceptable and can be coded in the inpatient setting, when documented at the
time of discharge.
Thank you,
Mariah Mcdonald RN BSN CCDS
CDI Specialist
please contact via tiger text
Please use your independent medical judgment in providing your response.
[2024-02-15 08:03] LABS: Glucose - Point of Care 141 mg/dl (70-99)
--- NOTE | 2024-02-15 08:11 | W.PN.CD ---
Addendum entered and electronically signed by Pablito Arora MD 02/17/24 09:06:
Note : on 02/15/24 the CXR was consistent with PNA which Is being treated by the hospitalist. I reviewed issues with the Dr Whitlock. We will see as needed
Addendum entered and electronically signed by BREEZY Sosa 02/15/24 10:48:
Updating CXR
Addendum entered and electronically signed by Pablito Arora MD 02/15/24 09:31:
I saw and examined the patient.
The SHEET MANAGER's note was reviewed and I agree with the note.
awake alert. Pain controlled. On 4 liters
- continued tx of RUL PNA as per hospitalists
- wean O2 as tolerated.
Original Note:
Today's Communication / Plan
-
-Patient in SR post-op. Follow telemetry. BP's stable- continue usual BP meds and monitor.
-PNA care per primary team
Impression / Plan
-
88-year-old female (last seen in the office by Dr. Arora in 2019), with hypertension, dyslipidemia, type 2 diabetes mellitus, Sjogren's disease, OLGA, and anxiety who had a fall with hip fracture and is now s/p surgery.
Mechanical fall, with right femoral neck fracture, denies LOC:
-s/p right hip hemiarthroplasty 02/14/24.
-remains in SR post-op
-no cardiac complications detected
-post-op pain controlled
-DVT prophylaxis and post-op management per surgery
Sepsis, believed to be CAP and viral gastroenteritis
-of note, patient with PNA as above and still has cough- she is now on 4L NC- She is on ABX- continue management per primary
Hypertension:
-seems stable post-op
-continue amlodipine, coreg, losartan
LBBB, seen during 2019 nuclear stress test, believed to be rate related
Type 2 diabetes mellitus, on oral agents, HgbA1c 7.5% last month
Dyslipidemia, LDL 61 on rosuvastatin 10
Sjogren's
Data:
-Echo 02/13/24: Normal biventricular size and systolic function. No significant valvular disease. No significant valvular disease. Mild pulmonary hypertension.
Physical Exam
Vital Signs/Labs
Vital Signs
Temp Pulse Resp BP Pulse Ox
98.2 F 83 18 153/67 94
02/15/24 07:35 02/15/24 07:35 02/15/24 07:35 02/15/24 07:35 02/15/24 07:35
02/14/24 02/15/24 02/16/24
06:59 06:59 06:59
Actual Weight 73.4 kg
02/15/24 05:32
02/15/24 05:32
LAB Results
02/13/24
09:08
Troponin I 0.014
Physical Exam
Constitutional: No acute distress
EENT: Anicteric
Cardiovascular: Rhythm & rate is regular
Respiratory: Other (on O2 by NC; coarse lung sounds to bases)
Neuro/Psych: AO x 3
Data Reviewed
-
Date of Service: February 15, 2024
EKG: Other (SR on telemetry)
[2024-02-15] MEDS: NOVOLOG FLEXPEN-LOW RESISTANCE SC (09:23)
[2024-02-15] MEDS: SENOKOT 17.1999999999999993 MG PO ×2 (09:23→20:00)
[2024-02-15] MEDS: ASPIRIN 325 MG PO (09:24)
[2024-02-15] MEDS: COLACE 100 MG PO ×2 (09:24→20:01)
[2024-02-15] MEDS: VITAMIN D3 (cholecalciferol) 25 MCG PO (09:24)
[2024-02-15] MEDS: TYLENOL 650 MG PO ×3 (09:24→18:31)
[2024-02-15] MEDS: NORVASC 5 MG PO ×2 (09:24→20:01)
[2024-02-15] MEDS: JARDIANCE 25 MG PO (09:24)
[2024-02-15] MEDS: VIBRAMYCIN 260 MG IV ×2 (09:25→21:05)
[2024-02-15] MEDS: LEXAPRO 20 MG PO (09:26)
[2024-02-15] MEDS: VESICARE 5 MG PO (09:26)
[2024-02-15] MEDS: BACTROBAN 2% OINTMENT 1 APPLIC NASAL ×2 (09:26→20:02)
[2024-02-15] MEDS: THERAGRAN 1 TABLET PO (09:26)
[2024-02-15] MEDS: COREG 12.5 MG PO ×2 (09:26→20:00)
--- NOTE | 2024-02-15 10:50 | W.PN.HOSP.TC ---
Today's Communication/Plan
-
Wean O2
2 view CXR
DC all IVF
OOB/PT
IV abx
Assessment / Plan
Assessment / Plan
#Mechanical fall
#Right femoral neck fracture.
Pain control
Antinausea meds
Started on asa 325 for dvt ppx
pt/ot
Echo with EF normal. No significant valvular disease. Mild pulmonary hypertension. Normal biventricular size and systolic function.
Appreciate cards for pre-op risk stratification-High risk for intermediate surgery. Monitor BP/tele post op.
# Severe Sepsis likely secondary community-acquired pneumonia and viral gastroenteritis and e.coli uti poa
Lactic acidosis resolved with IVF
Severe leukocytosis-improving
DC IVF. Tolerating diet.
s/p bolus.
Repeat lactic acid-downtrended.
Cont patient on ceftriaxone and doxycycline
Trend WBC-trending down.
If with cough and check sputum sample
#E.coli UTI
Already on rocephine
#Acute hypoxic respiratory insufficiency
Plan as above
Wean oxygen as tolerated
repeat CXR.
Stop IVF
# Diabetes mellitus type 2
Hold p.o. meds
A1C of 7.5 on 01/18
Insulin sliding scale and Accu-Cheks
#Hyperlipidemia
Continue statin
#Primary hypertension
Continue Norvasc and Cozaar
#Chronically elevated Bilirubin
Mood disorder
Continue SSRIs. Hold Xanax.
DVT prophylaxis SCDs/asa
Full code
PT/OT-SNF. CM aware.
d/w with cards
Anticipated Discharge: 24 - 48 hours
Subjective/Interval History
-
Date of Service: February 15, 2024
on increase oxygen requirement
Objective Data
-
Labs:
Laboratory Results
02/15/24
05:32
WBC 13.2 H
Hgb 13.0
Hct 41.3
Plt Count 166
Sodium 142
Potassium 4.1
Chloride 110 H
Carbon Dioxide 16 L
BUN 31 H
Creatinine 0.7
Glucose 125 H
Calcium 8.9
Vital Signs:
Vital Signs
Temp Pulse Resp BP Pulse Ox
98.2 F 83 18 153/67 94
02/15/24 07:35 02/15/24 07:35 02/15/24 07:35 02/15/24 07:35 02/15/24 07:35
I&O
02/14/24 02/15/24 02/16/24
06:59 06:59 06:59
Intake Total 2830 / 2830 1460 / 1460
Output Total 500 / 500
Balance 2330 / 2330 1460 / 1460
Physical Exam
-
General: Well Developed and No Apparent Distress
HEENT: Normocephalic, Atraumatic, Moist Mucous Membranes and Oxygen (2L)
Respiratory: Crackles
Cardiac: Regular Rhythm and S1/S2; Negative Murmur, Rub or Gallop
GI: Soft, Nontender, Nondistended and Normal Bowel Sounds; Negative Organomegaly
Rectal: Deferred by Provider
Musculoskeletal: No Clubbing, No Cyanosis, No Edema and Other (R hip aquacell dressing noted )
Skin: Negative Rash
Neuro: Awake and Nonfocal/Grossly Intact
Psych: Calm
Data Reviewed
-
Total Time Spent with Patient (in minutes): 55
--- NOTE | 2024-02-15 11:14 | CM ---
Addendum entered by Connie Gan RN 02/15/24 16:13:
IMM signed and placed on chart.
Addendum entered by Connie Gan RN 02/15/24 15:50:
Message left with [facility] admissions regarding possibility of bed availability. Precert will be required.
Original Note:
Reviewed the chart notes and spoke with the patient at the bedside. Family checked off listed SNFs for rehab. Referrals with PAS forwarded through [facility]. Precert will be required. CM continues to be available to patient/family and is
monitoring medical plan for needs at discharge.
Plan: Discharge to SNF/rehab once bed found and precert obtained.
[2024-02-15 12:11] LABS: Glucose - Point of Care 165 mg/dl (70-99)
[2024-02-15] MEDS: FLUSH (NSS) 2 FLUSH IV (14:01)
[2024-02-15] MEDS: ROCEPHIN 1000 MG IV (14:02)
[2024-02-15] MEDS: STERILE WATER FOR INJECTION 10 ML IV (14:02)
[2024-02-15] MEDS: NOVOLOG FLEXPEN-LOW RESISTANCE 1 UNITS SC ×2 (14:02→18:31)
[2024-02-15 16:26] LABS: Glucose - Point of Care 180 mg/dl (70-99)
[2024-02-15] MEDS: COZAAR 100 MG PO (18:31)
[2024-02-15 21:37] LABS: Glucose - Point of Care 145 mg/dl (70-99)
[2024-02-16] VITALS (8 sets, daily range): BP systolic 121–164; BP diastolic 59–75; PULSE 65–85; O2SAT 94–95
[2024-02-16] MEDS: TYLENOL PO (03:11)
[2024-02-16] MEDS: ROXICODONE 5 MG PO (06:10)
[2024-02-16 06:26] LABS: % Basophils 0.2 % (0-2); % Eosinophils 2.6 % (0-6); % Immature Granulocytes 0.4 % (0-0.5); % Lymphocytes 8.3 % (20.5-51.1); % Monocytes 8.1 % (1.7-9.3); % Neutrophils 80.4 % (42.2-75.2); Absolute Eosinophils 0.3 10^3/uL (0-0.7); Absolute Immature Granulocytes 0.1 10^3/uL (0-0.05); Absolute Neutrophils 9.7 10^3/uL (1.4-6.5); Hematocrit 36.4 % (37.0-47.0); Hemoglobin 12.2 g/dL (12.0-16.0); Mean Corp Hgb Conc. 33.5 g/dL (33.0-37.0); Mean Corpuscular Hgb 27.5 pg (27.0-31.0); Nucleated Red Blood Cells % 0 %; Platelet Count 188 10^3/uL (130-400); Red Blood Cell Count 4.44 10^6/uL (4.20-5.40); Red Cell Dist. Width 13.5 % (11.5-14.5)
[2024-02-16 06:50] LABS: Blood Urea Nitrogen 24 mg/dl (7-17); Calcium 8.5 mg/dl (8.4-10.2); Carbon Dioxide 22 mmol/L (22-30); Chloride 110 mmol/L (98-107); Glucose 94 mg/dl (70-99); Potassium 3.5 mmol/L (3.5-5.1); Sodium 141 mmol/L (135-145); eGFR > 60.00
[2024-02-16 07:49] LABS: Glucose - Point of Care 104 mg/dl (70-99)
[2024-02-16] MEDS: NOVOLOG FLEXPEN-LOW RESISTANCE SC ×3 (08:01→16:54)
[2024-02-16] MEDS: VIBRAMYCIN 260 MG IV ×2 (09:25→21:20)
[2024-02-16] MEDS: FLUSH (NSS) 2 FLUSH IV (09:25)
[2024-02-16] MEDS: ASPIRIN 325 MG PO (09:26)
[2024-02-16] MEDS: LEXAPRO 20 MG PO (09:26)
[2024-02-16] MEDS: SENOKOT PO ×3 (09:26→19:50)
[2024-02-16] MEDS: COLACE 100 MG PO ×2 (09:26→19:53)
[2024-02-16] MEDS: TYLENOL 650 MG PO ×4 (09:26→19:52)
[2024-02-16] MEDS: NORVASC 5 MG PO ×2 (09:27→19:53)
[2024-02-16] MEDS: COREG 12.5 MG PO ×2 (09:27→19:53)
[2024-02-16] MEDS: VITAMIN D3 (cholecalciferol) 25 MCG PO (09:27)
[2024-02-16] MEDS: JARDIANCE 25 MG PO (09:27)
[2024-02-16] MEDS: VESICARE 5 MG PO (09:27)
[2024-02-16] MEDS: THERAGRAN 1 TABLET PO (09:27)
--- NOTE | 2024-02-16 10:31 | W.PN.HOSP.TC ---
Addendum entered and electronically signed by Nazario Whitlock MD 02/16/24 10:56:
Right hip/femur fracture likely multifactorial due to trauma due to mechanical fall and osteopenia
Original Note:
Today's Communication/Plan
-
Wean O2
po abx on dc
start dispo efforts
Assessment / Plan
Assessment / Plan
#Mechanical fall
#Right femoral neck fracture.
Pain control
s/p R hip hemiarthoplasty on 02/[address] Landry
Antinausea meds
Started on asa 325 for dvt ppx per orthopedic
PT/OT-Plan for SNF.
Echo with EF normal. No significant valvular disease. Mild pulmonary hypertension. Normal biventricular size and systolic function.
OP ortho f/u
# Severe Sepsis likely secondary community-acquired pneumonia and viral gastroenteritis and e.coli uti poa
Lactic acidosis resolved with IVF
Severe leukocytosis-improving
DC IVF. Tolerating diet.
s/p bolus.
Repeat lactic acid-downtrended.
Cont patient on ceftriaxone and doxycycline
Trend WBC-trending down.
If with cough and check sputum sample
#E.coli UTI
Already on rocephin
#Acute hypoxic respiratory insufficiency
Plan as above
Wean oxygen as tolerated
stopped IVF.
# Diabetes mellitus type 2
Hold p.o. meds
A1C of 7.5 on 01/18
Insulin sliding scale and Accu-Cheks
#Hyperlipidemia
Continue statin
#Primary hypertension
Continue Norvasc and Cozaar
#Chronically elevated Bilirubin
Mood disorder
Continue SSRIs. Hold Xanax.
DVT prophylaxis SCDs/asa
Full code
PT/OT-SNF. CM aware.
Anticipated Discharge: Within 24 hours
Subjective/Interval History
-
Date of Service: February 16, 2024
now on ~1-1.5l oxygen
mild hip soreness
no cough
tolerating diet
Objective Data
-
Labs:
Laboratory Results
02/16/24
05:35
WBC 12.0 H
Hgb 12.2
Hct 36.4 L
Plt Count 188
Sodium 141
Potassium 3.5
Chloride 110 H
Carbon Dioxide 22
BUN 24 H
Creatinine 0.6
Glucose 94
Calcium 8.5
Vital Signs:
Vital Signs
Temp Pulse Resp BP Pulse Ox
98.3 F 74 16 164/75 98
02/16/24 07:01 02/16/24 09:27 02/16/24 07:01 02/16/24 09:27 02/16/24 07:01
I&O
02/15/24 02/16/24 02/17/24
06:59 06:59 06:59
Intake Total 1460 / 1460 2260 / 2260
Balance 1460 / 1460 2260 / 2260
Physical Exam
-
General: Well Developed and No Apparent Distress
HEENT: Normocephalic, Atraumatic, Moist Mucous Membranes and Oxygen (1-1.5L)
Respiratory: Rhonchi
Cardiac: Regular Rhythm and S1/S2; Negative Murmur, Rub or Gallop
GI: Soft, Nontender, Nondistended and Normal Bowel Sounds; Negative Organomegaly
Rectal: Deferred by Provider
Musculoskeletal: No Clubbing, No Cyanosis, No Edema and Other (R hip aquacell dressing noted )
Skin: Negative Rash
Neuro: Awake and Nonfocal/Grossly Intact
Psych: Calm
[2024-02-16 12:00] LABS: Glucose - Point of Care 141 mg/dl (70-99)
[2024-02-16] MEDS: ROCEPHIN 1000 MG IV (14:02)
[2024-02-16] MEDS: STERILE WATER FOR INJECTION 10 ML IV (14:02)
--- NOTE | 2024-02-16 14:12 | CM ---
Addendum entered by Connie Gan RN 02/16/24 15:51:
If auth obtained over w/e patient can be transferred. Call nursing slot floor supervisor at [facility] ([phone]) with auth information.
Addendum entered by Connie Gan RN 02/16/24 15:15:
Call placed to patient's insurance ([phone]) was directed to portion of [employer] ([phone]) left voice message on confidential line requesting auth [facility] SN[facility]# [id number]; Dr. Bernardo NPI# [id number]; Faxed clinicals to:
([phone])
Original Note:
Call placed to [facility] three times. Finally Corinne with admissions has returned CM calls. They are reviewing the clinical that was sent via [facility]. Precert will be required. Family, attending, and RN updated.
[2024-02-16 16:39] LABS: Glucose - Point of Care 122 mg/dl (70-99)
[2024-02-16] MEDS: CRESTOR 10 MG PO (17:38)
[2024-02-16] MEDS: COZAAR 100 MG PO (17:38)
[2024-02-16 21:59] LABS: Glucose - Point of Care 135 mg/dl (70-99)
[2024-02-17] MEDS: TYLENOL 650 MG PO ×6 (00:16→23:13)
[2024-02-17] MEDS: TYLENOL PO (04:40)
[2024-02-17 07:16] LABS: Glucose - Point of Care 102 mg/dl (70-99)
[2024-02-17 07:25] VITALS: BP 177/78
[2024-02-17 07:45] LABS: % Basophils 0.5 % (0-2); % Eosinophils 7.8 % (0-6); % Immature Granulocytes 0.8 % (0-0.5); % Lymphocytes 11.7 % (20.5-51.1); % Monocytes 7.5 % (1.7-9.3); % Neutrophils 71.7 % (42.2-75.2); Absolute Eosinophils 0.6 10^3/uL (0-0.7); Absolute Immature Granulocytes 0.1 10^3/uL (0-0.05); Absolute Lymphocytes 0.9 10^3/uL (1.2-3.4); Absolute Monocytes 0.6 10^3/uL (0.1-0.6); Absolute Neutrophils 5.3 10^3/uL (1.4-6.5); Hematocrit 38.6 % (37.0-47.0); Hemoglobin 13.1 g/dL (12.0-16.0); Mean Corp Hgb Conc. 33.9 g/dL (33.0-37.0); Mean Corpuscular Volume 82.5 fL (81.0-99.0); Mean Platelet Volume 9.7 fL (7.4-10.4); Nucleated Red Blood Cells % 0 %; Platelet Count 186 10^3/uL (130-400); Red Blood Cell Count 4.68 10^6/uL (4.20-5.40); Red Cell Dist. Width 13.4 % (11.5-14.5); White Blood Cell Count 7.4 10^3/uL (4.8-10.8)
[2024-02-17 07:52] LABS: Blood Urea Nitrogen 16 mg/dl (7-17); Calcium 8.4 mg/dl (8.4-10.2); Carbon Dioxide 25 mmol/L (22-30); Chloride 104 mmol/L (98-107); Glucose 88 mg/dl (70-99); Potassium 3.1 mmol/L (3.5-5.1); Sodium 139 mmol/L (135-145); eGFR > 60.00
[2024-02-17] MEDS: KCL ELIXIR 40 MEQ PO (08:44)
[2024-02-17] MEDS: ASPIRIN 325 MG PO (08:44)
[2024-02-17] MEDS: NOVOLOG FLEXPEN-LOW RESISTANCE SC ×3 (08:44→16:50)
[2024-02-17] MEDS: SENOKOT PO (08:45)
[2024-02-17] MEDS: THERAGRAN 1 TABLET PO (08:45)
[2024-02-17] MEDS: COLACE 100 MG PO (08:45)
[2024-02-17] MEDS: LEXAPRO 20 MG PO (08:45)
[2024-02-17] MEDS: VITAMIN D3 (cholecalciferol) 25 MCG PO (08:46)
[2024-02-17] MEDS: COREG 12.5 MG PO ×2 (08:46→20:23)
[2024-02-17] MEDS: VESICARE 5 MG PO (08:46)
[2024-02-17] MEDS: JARDIANCE 25 MG PO (08:46)
[2024-02-17] MEDS: VIBRAMYCIN 260 MG IV (08:47)
[2024-02-17] MEDS: FLUSH (NSS) 2 FLUSH IV ×2 (08:47→13:29)
[2024-02-17] MEDS: NORVASC 5 MG PO ×2 (08:50→20:23)
--- NOTE | 2024-02-17 10:28 | CM ---
Addendum entered by Bernice Erazo 02/18/24 08:46:
i called [facility] both mon and monday and left [facility] to return to my call so that we can obtain auth for patient to discharge to [facility].
Original Note:
i refaxed clinicals to [phone] as per voice message left on answering machine .patient needs auth from insurance for patient to go to [facility].Plan:awaiting auth from insurance.
--- NOTE | 2024-02-17 11:17 | W.PN.HOSP.TC ---
Today's Communication/Plan
-
Await placement
po abx on dc
wean o2
CM aware
Assessment / Plan
Assessment / Plan
#Mechanical fall
#Right femoral neck fracture.
Pain control
s/p R hip hemiarthoplasty on 02/[address] Landry
Antinausea meds
Started on asa 325 for dvt ppx per orthopedic
PT/OT-Plan for SNF.
Echo with EF normal. No significant valvular disease. Mild pulmonary hypertension. Normal biventricular size and systolic function.
OP ortho f/u
# Severe Sepsis likely secondary community-acquired pneumonia and viral gastroenteritis and e.coli uti poa
Lactic acidosis resolved with IVF
Severe leukocytosis-improving
DC IVF. Tolerating diet.
s/p bolus.
Repeat lactic acid-downtrended.
Cont patient on ceftriaxone and doxycycline
Trend WBC-trending down.
If with cough and check sputum sample
#E.coli UTI
Already on rocephin
#Acute hypoxic respiratory insufficiency
Plan as above
Wean oxygen as tolerated
stopped IVF.
#Loose stools
DC senokot
probiotics
# Diabetes mellitus type 2
Hold p.o. meds
A1C of 7.5 on 01/18
Insulin sliding scale and Accu-Cheks
#Hyperlipidemia
Continue statin
#Primary hypertension
Continue Norvasc and Cozaar
#Chronically elevated Bilirubin
Mood disorder
Continue SSRIs. Hold Xanax.
DVT prophylaxis SCDs/asa
Full code
PT/OT-SNF. CM aware.
Anticipated Discharge: Today
Subjective/Interval History
-
Date of Service: February 17, 2024
states of loose stools
Objective Data
-
Labs:
Laboratory Results
02/17/24
07:07
WBC 7.4
Hgb 13.1
Hct 38.6
Plt Count 186
Sodium 139
Potassium 3.1 L
Chloride 104
Carbon Dioxide 25
BUN 16
Creatinine 0.6
Glucose 88
Calcium 8.4
Vital Signs:
Vital Signs
Temp Pulse Resp BP Pulse Ox
98.0 F 79 18 177/78 95
02/17/24 07:25 02/17/24 07:25 02/17/24 07:25 02/17/24 07:25 02/17/24 08:42
I&O
02/16/24 02/17/24 02/18/24
06:59 06:59 06:59
Intake Total 2260 / 2260 1540 / 1540
Balance 2260 / 2260 1540 / 1540
[2024-02-17 12:07] LABS: Glucose - Point of Care 115 mg/dl (70-99)
[2024-02-17] MEDS: VISBIOME 1 CAP PO (12:34)
[2024-02-17] MEDS: ROCEPHIN 1000 MG IV (13:28)
[2024-02-17] MEDS: STERILE WATER FOR INJECTION 10 ML IV (13:29)
[2024-02-17 15:45] VITALS: BP 162/73
[2024-02-17 16:45] LABS: Glucose - Point of Care 129 mg/dl (70-99)
[2024-02-17] MEDS: COZAAR 100 MG PO (17:27)
[2024-02-17] MEDS: VIBRAMYCIN 100 MG PO (20:23)
[2024-02-17] MEDS: COLACE PO (20:23)
[2024-02-17 21:20] LABS: Glucose - Point of Care 166 mg/dl (70-99)
[2024-02-17 23:00] VITALS: BP 152/115
[2024-02-17] MEDS: APRESOLINE 5 MG IV (23:10)
[2024-02-17] MEDS: FLUSH (NSS) 1 FLUSH IV (23:12)
[2024-02-18 03:32] VITALS: BP 148/72
[2024-02-18] MEDS: TYLENOL PO ×2 (05:19→11:54)
[2024-02-18 07:10] VITALS: BP 170/77
[2024-02-18 07:10] LABS: Glucose - Point of Care 122 mg/dl (70-99)
[2024-02-18 07:51] LABS: % Basophils 0.5 % (0-2); % Eosinophils 4.4 % (0-6); % Immature Granulocytes 0.9 % (0-0.5); % Lymphocytes 12.2 % (20.5-51.1); % Monocytes 8.1 % (1.7-9.3); % Neutrophils 73.9 % (42.2-75.2); Absolute Basophils 0.1 10^3/uL (0-0.2); Absolute Eosinophils 0.4 10^3/uL (0-0.7); Absolute Immature Granulocytes 0.1 10^3/uL (0-0.05); Absolute Lymphocytes 1.1 10^3/uL (1.2-3.4); Absolute Monocytes 0.8 10^3/uL (0.1-0.6); Absolute Neutrophils 6.9 10^3/uL (1.4-6.5); Hematocrit 43.5 % (37.0-47.0); Mean Corp Hgb Conc. 32.2 g/dL (33.0-37.0); Mean Corpuscular Hgb 27.2 pg (27.0-31.0); Mean Corpuscular Volume 84.5 fL (81.0-99.0); Mean Platelet Volume 9.7 fL (7.4-10.4); Nucleated Red Blood Cells % 0 %; Platelet Count 234 10^3/uL (130-400); Red Blood Cell Count 5.15 10^6/uL (4.20-5.40); Red Cell Dist. Width 13.5 % (11.5-14.5); White Blood Cell Count 9.3 10^3/uL (4.8-10.8)
[2024-02-18] MEDS: NOVOLOG FLEXPEN-LOW RESISTANCE SC ×3 (08:00→16:45)
[2024-02-18 08:07] LABS: Blood Urea Nitrogen 17 mg/dl (7-17); Calcium 9.5 mg/dl (8.4-10.2); Carbon Dioxide 25 mmol/L (22-30); Chloride 107 mmol/L (98-107); Glucose 129 mg/dl (70-99); Potassium 4.6 mmol/L (3.5-5.1); Sodium 142 mmol/L (135-145); eGFR > 60.00
[2024-02-18] MEDS: ASPIRIN 325 MG PO (09:50)
[2024-02-18] MEDS: COLACE 100 MG PO (09:50)
[2024-02-18] MEDS: JARDIANCE 25 MG PO (09:51)
[2024-02-18] MEDS: VISBIOME 1 CAP PO (09:51)
[2024-02-18] MEDS: VIBRAMYCIN 100 MG PO ×2 (09:51→20:33)
[2024-02-18] MEDS: NORVASC 5 MG PO ×2 (09:51→20:33)
[2024-02-18] MEDS: COREG 12.5 MG PO ×2 (09:51→20:33)
[2024-02-18] MEDS: TYLENOL 650 MG PO ×4 (09:51→23:18)
[2024-02-18] MEDS: LEXAPRO 20 MG PO (09:51)
[2024-02-18] MEDS: VITAMIN D3 (cholecalciferol) 25 MCG PO (09:51)
[2024-02-18] MEDS: THERAGRAN 1 TABLET PO (09:51)
[2024-02-18] MEDS: VESICARE 5 MG PO (09:53)
--- NOTE | 2024-02-18 10:44 | W.PN.HOSP.TC ---
Today's Communication/Plan
-
Start hydralazine
Await placement
Assessment / Plan
Assessment / Plan
#Right hip/femur fracture likely multifactorial due to trauma due to mechanical fall and osteopenia
Pain control
s/p R hip hemiarthoplasty on 02/[address] Landry
Antinausea meds
Started on asa 325 for dvt ppx per orthopedic
PT/OT-Plan for SNF.
Echo with EF normal. No significant valvular disease. Mild pulmonary hypertension. Normal biventricular size and systolic function.
OP ortho f/u
# Severe Sepsis likely secondary community-acquired pneumonia and viral gastroenteritis and e.coli uti poa
Lactic acidosis resolved with IVF
Severe leukocytosis-improving
DC IVF. Tolerating diet.
s/p bolus.
Repeat lactic acid-downtrended.
Cont patient on ceftriaxone and doxycycline
Trend WBC-trended down
If with cough and check sputum sample
#E.coli UTI
Already on rocephin
#Acute hypoxic respiratory insufficiency
Plan as above
Wean oxygen as tolerated
stopped IVF.
#Loose stools
DC senokot
probiotics
# Diabetes mellitus type 2
Hold p.o. meds
A1C of 7.5 on 01/18
Insulin sliding scale and Accu-Cheks
#Hyperlipidemia
Continue statin
#Primary hypertension
Continue Norvasc and Cozaar and coreg.
Started hydrlazine
#Chronically elevated Bilirubin
Mood disorder
Continue SSRIs. Hold Xanax.
DVT prophylaxis SCDs/asa
Full code
PT/OT-SNF. CM aware.
Anticipated Discharge: Within 24 hours
Subjective/Interval History
-
Date of Service: February 18, 2024
States of mild hip soreness
States she is feeling significantly better
Tolerating diet
Objective Data
-
Labs:
Laboratory Results
02/18/24
06:56
WBC 9.3
Hgb 14.0
Hct 43.5
Plt Count 234 D
Sodium 142
Potassium 4.6 D
Chloride 107
Carbon Dioxide 25
BUN 17
Creatinine 0.6
Glucose 129 H
Calcium 9.5
Vital Signs:
Vital Signs
Temp Pulse Resp BP Pulse Ox
98.3 F 79 16 164/80 96
02/18/24 07:10 02/18/24 09:51 02/18/24 07:10 02/18/24 09:51 02/18/24 07:10
I&O
02/17/24 02/18/24 02/19/24
06:59 06:59 06:59
Intake Total 1540 / 1540 1640 / 1640
Balance 1540 / 1540 1640 / 1640
Physical Exam
-
General: Well Developed and No Apparent Distress
HEENT: Normocephalic, Atraumatic, Moist Mucous Membranes and Oxygen (1-1.5L)
Respiratory: Rhonchi
Cardiac: Regular Rhythm and S1/S2; Negative Murmur, Rub or Gallop
GI: Soft, Nontender, Nondistended and Normal Bowel Sounds; Negative Organomegaly
Rectal: Deferred by Provider
Musculoskeletal: No Clubbing, No Cyanosis, No Edema and Other (R hip aquacell dressing noted )
Skin: Negative Rash
Neuro: Awake and Nonfocal/Grossly Intact
Psych: Calm
Data Reviewed
-
Total Time Spent with Patient (in minutes): 55
[2024-02-18 11:50] VITALS: BP 146/72; PULSE 72; O2SAT 96
[2024-02-18] MEDS: APRESOLINE 10 MG PO ×2 (11:53→20:32)
[2024-02-18 11:56] LABS: Glucose - Point of Care 156 mg/dl (70-99)
[2024-02-18] MEDS: ROCEPHIN 1000 MG IV (14:28)
[2024-02-18] MEDS: STERILE WATER FOR INJECTION 10 ML IV (14:28)
[2024-02-18] MEDS: FLUSH (NSS) 1 FLUSH IV (14:28)
[2024-02-18 15:35] VITALS: BP 152/73
[2024-02-18 16:45] LABS: Glucose - Point of Care 119 mg/dl (70-99)
[2024-02-18] MEDS: COZAAR 100 MG PO (17:31)
[2024-02-18] MEDS: COLACE PO ×2 (20:33→20:55)
[2024-02-18 21:03] LABS: Glucose - Point of Care 167 mg/dl (70-99)
[2024-02-18 23:20] VITALS: BP 138/69
[2024-02-19] MEDS: TYLENOL 650 MG PO ×5 (04:35→20:55)
[2024-02-19 06:57] LABS: % Basophils 0.7 % (0-2); % Eosinophils 4.9 % (0-6); % Immature Granulocytes 1.4 % (0-0.5); % Lymphocytes 16.4 % (20.5-51.1); % Monocytes 10.1 % (1.7-9.3); % Neutrophils 66.5 % (42.2-75.2); Absolute Basophils 0.1 10^3/uL (0-0.2); Absolute Eosinophils 0.4 10^3/uL (0-0.7); Absolute Immature Granulocytes 0.1 10^3/uL (0-0.05); Absolute Lymphocytes 1.4 10^3/uL (1.2-3.4); Absolute Monocytes 0.9 10^3/uL (0.1-0.6); Absolute Neutrophils 5.7 10^3/uL (1.4-6.5); Hematocrit 38.3 % (37.0-47.0); Hemoglobin 12.9 g/dL (12.0-16.0); Mean Corp Hgb Conc. 33.7 g/dL (33.0-37.0); Mean Corpuscular Hgb 27.3 pg (27.0-31.0); Mean Corpuscular Volume 81.1 fL (81.0-99.0); Mean Platelet Volume 9.7 fL (7.4-10.4); Nucleated Red Blood Cells % 0 %; Platelet Count 221 10^3/uL (130-400); Red Blood Cell Count 4.72 10^6/uL (4.20-5.40); Red Cell Dist. Width 13.7 % (11.5-14.5); White Blood Cell Count 8.6 10^3/uL (4.8-10.8)
[2024-02-19 07:19] LABS: Blood Urea Nitrogen 19 mg/dl (7-17); Calcium 8.4 mg/dl (8.4-10.2); Carbon Dioxide 24 mmol/L (22-30); Chloride 105 mmol/L (98-107); Glucose 113 mg/dl (70-99); Potassium 3.5 mmol/L (3.5-5.1); Sodium 139 mmol/L (135-145); eGFR > 60.00
[2024-02-19 07:21] VITALS: BP 172/77
[2024-02-19 07:26] LABS: Glucose - Point of Care 115 mg/dl (70-99)
[2024-02-19] MEDS: NOVOLOG FLEXPEN-LOW RESISTANCE SC (08:07)
[2024-02-19] MEDS: APRESOLINE 10 MG PO ×2 (08:09→20:54)
[2024-02-19] MEDS: NORVASC 5 MG PO ×2 (08:10→20:54)
[2024-02-19] MEDS: THERAGRAN 1 TABLET PO (08:10)
[2024-02-19] MEDS: ASPIRIN 325 MG PO (08:10)
[2024-02-19] MEDS: VESICARE 5 MG PO (08:10)
[2024-02-19] MEDS: JARDIANCE 25 MG PO (08:10)
[2024-02-19] MEDS: COLACE PO ×2 (08:10→20:55)
[2024-02-19] MEDS: VITAMIN D3 (cholecalciferol) 25 MCG PO (08:11)
[2024-02-19] MEDS: LEXAPRO 20 MG PO (08:11)
[2024-02-19] MEDS: COREG 12.5 MG PO ×2 (08:11→20:54)
[2024-02-19] MEDS: VISBIOME 1 CAP PO (08:13)
--- NOTE | 2024-02-19 09:47 | CM ---
Addendum entered by Connie Gan RN 02/19/24 15:07:
Received call from patient's spouse who provided [phone]. Call placed and spoke with investment representative. They received referral request 02/16/24 and have 14 days to respond. CM asked for referral to be expedited. [facility] informed CM that
there is no phone line to connect with their UR department, that CM would need to leave a voice message (which has been done multiple times) or send an additional fax requesting that the referral be expedited which has now been done.
Original Note:
Reviewed the chart notes. CM called and left message requesting an auth for the patient. Awaiting call back. Updated clinicals faxed yesterday to insurance.
--- NOTE | 2024-02-19 10:38 | W.PN.HOSP.TC ---
Today's Communication/Plan
-
await placement
Assessment / Plan
Assessment / Plan
#Right hip/femur fracture likely multifactorial due to trauma due to mechanical fall and osteopenia
Pain control
s/p R hip hemiarthoplasty on 02/[address] Landry
Antinausea meds
Started on asa 325 for dvt ppx per orthopedic
PT/OT-Plan for SNF.
Echo with EF normal. No significant valvular disease. Mild pulmonary hypertension. Normal biventricular size and systolic function.
OP ortho f/u
# Severe Sepsis likely secondary community-acquired pneumonia and viral gastroenteritis and e.coli uti poa
Lactic acidosis resolved with IVF
Severe leukocytosis-improving
DC IVF. Tolerating diet.
s/p bolus.
Repeat lactic acid-downtrended.
Completed course of ceftriaxone and doxycycline
Trend WBC-trended down
#E.coli UTI
completed course
#Acute hypoxic respiratory insufficiency
Plan as above
Wean oxygen as tolerated
stopped IVF.
on room air
#Loose stools
DC senokot
probiotics
# Diabetes mellitus type 2
Hold p.o. meds
A1C of 7.5 on 01/18
Insulin sliding scale and Accu-Cheks
#Hyperlipidemia
Continue statin
#Primary hypertension
Continue Norvasc and Cozaar and coreg.
Started hydrlazine
#Chronically elevated Bilirubin
Mood disorder
Continue SSRIs. Hold Xanax.
DVT prophylaxis SCDs/asa
Full code
PT/OT-SNF. CM aware.
Anticipated Discharge: Today
Subjective/Interval History
-
Date of Service: February 19, 2024
watching tv
off oxygen
denies chest pain or shortness of breath
Objective Data
-
Labs:
Laboratory Results
02/19/24
05:34
WBC 8.6
Hgb 12.9
Hct 38.3
Plt Count 221
Sodium 139
Potassium 3.5
Chloride 105
Carbon Dioxide 24
BUN 19 H
Creatinine 0.6
Glucose 113 H
Calcium 8.4
Vital Signs:
Vital Signs
Temp Pulse Resp BP Pulse Ox
98 F 72 16 172/77 95
02/19/24 07:21 02/19/24 08:10 02/19/24 07:21 02/19/24 08:10 02/19/24 08:15
I&O
02/18/24 02/19/24 02/20/24
06:59 06:59 06:59
Intake Total 1640 / 1640 1180 / 1180
Balance 1640 / 1640 1180 / 1180
Physical Exam
-
General: Well Developed and No Apparent Distress
HEENT: Normocephalic, Atraumatic and Moist Mucous Membranes; Negative Oxygen
Respiratory: Clear to Auscultation
Cardiac: Regular Rhythm and S1/S2; Negative Murmur, Rub or Gallop
GI: Soft, Nontender, Nondistended and Normal Bowel Sounds; Negative Organomegaly
Rectal: Deferred by Provider
Musculoskeletal: No Clubbing, No Cyanosis, No Edema and Other (R hip aquacell dressing noted )
Skin: Negative Rash
Neuro: Awake and Nonfocal/Grossly Intact
Psych: Calm
[2024-02-19 11:29] LABS: Glucose - Point of Care 171 mg/dl (70-99)
[2024-02-19 11:40] VITALS: BP 142/66; PULSE 74; O2SAT 95
[2024-02-19] MEDS: NOVOLOG FLEXPEN-LOW RESISTANCE 1 UNITS SC ×2 (11:43→18:07)
[2024-02-19] MEDS: STERILE WATER FOR INJECTION IV (12:38)
[2024-02-19 15:17] VITALS: BP 134/53
[2024-02-19 16:31] VITALS: BP 149/73; PULSE 74
[2024-02-19] MEDS: CRESTOR 10 MG PO (17:05)
[2024-02-19] MEDS: COZAAR 100 MG PO (17:05)
[2024-02-19 17:16] LABS: Glucose - Point of Care 176 mg/dl (70-99)
[2024-02-19 22:04] LABS: Glucose - Point of Care 188 mg/dl (70-99)
[2024-02-19 23:25] VITALS: BP 141/66
[2024-02-19] MEDS: TYLENOL PO (23:37)
[2024-02-20] MEDS: TYLENOL PO (04:00)
[2024-02-20 07:29] LABS: % Basophils 0.7 % (0-2); % Eosinophils 4.5 % (0-6); % Immature Granulocytes 1.2 % (0-0.5); % Lymphocytes 14.7 % (20.5-51.1); % Monocytes 9.8 % (1.7-9.3); % Neutrophils 69.1 % (42.2-75.2); Absolute Basophils 0.1 10^3/uL (0-0.2); Absolute Eosinophils 0.5 10^3/uL (0-0.7); Absolute Immature Granulocytes 0.1 10^3/uL (0-0.05); Absolute Lymphocytes 1.5 10^3/uL (1.2-3.4); Absolute Neutrophils 6.8 10^3/uL (1.4-6.5); Hematocrit 37.1 % (37.0-47.0); Hemoglobin 12.3 g/dL (12.0-16.0); Mean Corp Hgb Conc. 33.2 g/dL (33.0-37.0); Mean Corpuscular Hgb 27.5 pg (27.0-31.0); Mean Corpuscular Volume 82.8 fL (81.0-99.0); Mean Platelet Volume 9.5 fL (7.4-10.4); Nucleated Red Blood Cells % 0 %; Platelet Count 261 10^3/uL (130-400); Red Blood Cell Count 4.48 10^6/uL (4.20-5.40); Red Cell Dist. Width 13.9 % (11.5-14.5); White Blood Cell Count 9.9 10^3/uL (4.8-10.8)
[2024-02-20 07:43] VITALS: BP 157/73
[2024-02-20 07:45] LABS: Glucose - Point of Care 159 mg/dl (70-99)
[2024-02-20] MEDS: TYLENOL 650 MG PO ×2 (08:26→11:01)
[2024-02-20] MEDS: ASPIRIN 325 MG PO (08:26)
[2024-02-20] MEDS: VITAMIN D3 (cholecalciferol) 25 MCG PO (08:27)
[2024-02-20] MEDS: APRESOLINE 10 MG PO (08:27)
[2024-02-20] MEDS: THERAGRAN 1 TABLET PO (08:27)
[2024-02-20] MEDS: COREG 12.5 MG PO (08:27)
[2024-02-20] MEDS: NORVASC 5 MG PO (08:27)
[2024-02-20] MEDS: LEXAPRO 20 MG PO (08:27)
[2024-02-20] MEDS: VISBIOME 1 CAP PO (08:27)
[2024-02-20] MEDS: VESICARE 5 MG PO (08:27)
[2024-02-20] MEDS: JARDIANCE 25 MG PO (08:28)
[2024-02-20] MEDS: NOVOLOG FLEXPEN-LOW RESISTANCE 1 UNITS SC (08:28)
[2024-02-20] MEDS: COLACE PO (08:28)
--- NOTE | 2024-02-20 08:37 | CM ---
Addendum entered by Connie Gan RN 02/20/24 09:50:
Patient's son will transport.
Addendum entered by Connie Gan RN 02/20/24 09:34:
Plan: Discharge to [facility]
Call report to: [phone]
Fax report to: [phone]
Original Note:
Received auth from [employer]. [facility] to inform of receipt of auth. Awaiting call back.
Approved 02/19/24-02/26/24; Auth# [id number]
NRD 02/26/24 to Cristina; fax: [phone]; call: [phone], [phone]. [phone]
[2024-02-20 09:07] VITALS: BP 148/62; PULSE 79; O2SAT 95
--- NOTE | 2024-02-20 09:51 | W.PN.HOSP.TC ---
Today's Communication/Plan
-
dc to snf
ortho f/u
Assessment / Plan
Assessment / Plan
#Right hip/femur fracture likely multifactorial due to trauma due to mechanical fall and osteopenia
Pain control
s/p R hip hemiarthoplasty on 02/[address] Landry
Antinausea meds
Started on asa 325 for dvt ppx per orthopedic
PT/OT-Plan for SNF.
Echo with EF normal. No significant valvular disease. Mild pulmonary hypertension. Normal biventricular size and systolic function.
OP ortho f/u
# Severe Sepsis likely secondary community-acquired pneumonia and viral gastroenteritis and e.coli uti poa
Lactic acidosis resolved with IVF
Severe leukocytosis-improving
DC IVF. Tolerating diet.
s/p bolus.
Repeat lactic acid-downtrended.
Completed course of ceftriaxone and doxycycline
Trend WBC-trended down
#E.coli UTI
completed course
#Acute hypoxic respiratory insufficiency
Plan as above
Wean oxygen as tolerated
stopped IVF.
on room air
#Loose stools
DC senokot
probiotics
# Diabetes mellitus type 2
Hold p.o. meds
A1C of 7.5 on 01/18
Insulin sliding scale and Accu-Cheks
#Hyperlipidemia
Continue statin
#Primary hypertension
Continue Norvasc and Cozaar and coreg.
Started hydrlazine
bp improving. further management as OP.
#Chronically elevated Bilirubin
Mood disorder
Continue SSRIs.
Pt off xanax and did well no withdrawal symptoms noted. Pt with fall risk and will stop benzo on discharged.
DVT prophylaxis SCDs/asa
Full code
PT/OT-SNF. CM aware.
More than 30 minutes spent in discharge including
Final examination of the patient
Summarizing hospital stay
Instructions for continuing care to all relevant caregivers
Preparation of discharge records, prescriptions, and referral forms
Total time spent (in minutes): 45
Anticipated Discharge: Today
Subjective/Interval History
-
Date of Service: February 20, 2024
working with PT
ambulating with walker
Objective Data
-
Labs:
Laboratory Results
02/20/24
05:53
WBC 9.9
Hgb 12.3
Hct 37.1
Plt Count 261
Vital Signs:
Vital Signs
Temp Pulse Resp BP Pulse Ox
98.8 F 81 17 143/65 94
02/20/24 07:43 02/20/24 08:27 02/20/24 07:43 02/20/24 08:27 02/20/24 08:00
I&O
02/19/24 02/20/24 02/21/24
06:59 06:59 06:59
Intake Total 1180 / 1180 1500 / 1500
Balance 1180 / 1180 1500 / 1500
Physical Exam
-
General: Well Developed and No Apparent Distress
HEENT: Normocephalic, Atraumatic and Moist Mucous Membranes; Negative Oxygen
Respiratory: Clear to Auscultation
Cardiac: Regular Rhythm and S1/S2; Negative Murmur, Rub or Gallop
GI: Soft, Nontender, Nondistended and Normal Bowel Sounds; Negative Organomegaly
Rectal: Deferred by Provider
Musculoskeletal: No Clubbing, No Cyanosis, No Edema and Other (R hip aquacell dressing noted )
Skin: Negative Rash
Neuro: Awake and Nonfocal/Grossly Intact
Psych: Calm
--- NOTE | 2024-02-20 09:54 | W.DCSUMMARY ---
Discharge Summary
Discharge Data
Date of Admission: 02/13/24
Date of Discharge: 02/20/24
-
Pending Results: No
Hospital Course
88-year-old female past medical history of diabetes mellitus, hyperlipidemia, hypertension, mood disorder who is presenting from home after mechanical fall. Patient was found to have a right femur fracture. Patient was eval by orthopedic. Also on
admission patient was found to have a acuity acquired pneumonia and E. coli UTI. Patient lactic acidosis resolved with IV fluids. Patient was started on IV ceftriaxone and doxycycline. Patient completed course during hospitalization. Patient
leukocytosis resolved. Cardiology was consulted for preop risk stratification due to abnormal EKG on admission. Patient underwent echocardiogram Echo with EF normal. No significant valvular disease. Mild pulmonary hypertension. Normal
biventricular size and systolic function. Patient underwent to the operating room and underwent right hip hemiarthroplasty. Postop patient did well. She was weaned off the oxygen. Patient also with elevated blood pressure was started on
hydralazine with improvement. Patient was evaluated by physical and Occupational Therapy. Patient be discharged to [facility] facility.
Discharge Plan
-
Patient Disposition: Care Home/SNF
Discharge Diagnosis/Procedures: Right hip/femur fracture likely multifactorial due to trauma due to mechanical fall and osteopenia
s/p Right hip hemiarthoplasty on 02/[address] Landry
Severe Sepsis likely secondary community-acquired pneumonia and viral gastroenteritis and e.coli uti poa
Acute hypoxic respiratory insufficiency
Primary hypertension elevated
Condition: Fair
Diet: Diabetic, Carb Controlled
Activity: With assistance and As tolerated
Driving Restrictions: Not until seen by your Dr
Referrals:
Christal Choi DO [Family Provider] - in less than 1 week
Bib Raza MD [Active] - in two weeks (Call to make appointment for postop management/follow-up)
Prescriptions:
New
acetaminophen 325 mg Tablet
650 mg PO Q4H Qty: 30 0RF
aspirin 325 mg Tablet
325 mg PO DAILY Qty: 22 0RF
Rx Instructions:
Cont till 03/12/24
hydralazine 10 mg Tablet
10 mg PO BID Qty: 60 0RF
Continued
cevimeline [Evoxac] 30 MG capsule
30 mg PO BID
omeprazole 20 MG capsule,delayed release(DR/EC)
20 mg PO DAILYPRN PRN (Reason: acid reflux)
rosuvastatin 10 MG tablet
10 mg PO MOWEFR@1800
losartan [Cozaar] 100 MG tablet
100 mg PO QPM
cholecalciferol (vitamin D3) 1,000 UNITS tablet
1,000 units PO DAILY
carvedilol 12.5 mg Tablet
12.5 mg PO BID
amlodipine 10 mg Tablet
5 mg PO BID
glimepiride 4 mg Tablet
4 mg PO DAILY
metformin 500 mg Tablet Extended Release 24 Hr
1,000 mg PO QPM
escitalopram oxalate 20 mg Tablet
20 mg PO DAILY
solifenacin 5 mg Tablet
5 mg PO DAILY
Jardiance 25 mg Tablet
25 mg PO DAILY
Centrum Chewables 8 mg-400 mcg- 10 mcg Tablet,Chewable
2 tab PO DAILY
Gemtesa 75 mg Tablet
75 mg PO DAILY
Held
aspirin 81 mg Tablet,Delayed Release (Dr/Ec)
81 mg PO QPM
Hold Instructions: Resume on 03/13/24.
Discontinued
alprazolam 0.25 MG tablet
0.25 mg PO Q4HPRN PRN (Reason: anxiety)
Discharge Orders:
Discharge Patient (As Directed); Ordered 02/20/24
Ordered By: Nazario Whitlock
Discharge Date and Time
Print Language: JAPANESE
[2024-02-20 11:00] VITALS: BP 135/54
[2024-02-20] MEDS: NOVOLOG FLEXPEN-LOW RESISTANCE 2 UNITS SC (11:03)
[2024-02-20 11:05] LABS: Glucose - Point of Care 234 mg/dl (70-99)
== END 2024-02-20 15:00 | DRG 853 ==
LOC: 2 SOUTH 13:32
PROVIDERS: Physician Assistant; ADMITTING PHYSICIAN Hospitalist; CONSULT PHYSICIAN Internal Medicine Cardiovascular Disease; CONSULT PHYSICIAN Orthopaedic Surgery; EMERGENCY PHYSICIAN Emergency Medicine; FAMILY PHYSICIAN Family Medicine
PROC: 0SRR0JZ Replacement of Right Hip Joint, Femoral Surface with Synthetic Substitute, Open Approach (ICD-10-PCS; 2024-02-14)
DX: A41.9 Sepsis, unspecified organism (principal); J18.9 Pneumonia, unspecified organism; N39.0 Urinary tract infection, site not specified; E87.20 Acidosis, unspecified; M80.051A Age-related osteoporosis with current pathological fracture, right femur, initial encounter for fracture; R17 Unspecified jaundice; B96.20 Unspecified Escherichia coli [E. coli] as the cause of diseases classified elsewhere; A08.4 Viral intestinal infection, unspecified; W01.0XXA Fall on same level from slipping, tripping and stumbling without subsequent striking against object, initial encounter; M35.00 Sjogren syndrome, unspecified; E11.9 Type 2 diabetes mellitus without complications; E78.5 Hyperlipidemia, unspecified
CPT/HCPCS: 70450; 71045; 71046; 73502; 80048; 80053; 81003; 81015; 82550; 82962; 83605; 83690; 84484; 85025; 86850; 86900; 86901; 87077; 87086; 87186; 93005; 93306; 96365; 96375; 97110; 97116; 97162; 97166; 97530; 97535; 99285; C1713; C1776